=== PATIENT | female | born 1975 | race Caucasian/White ===

== ENCOUNTER 2018-08-25 00:39 | Emergency (ER) | payer SELFPAY ==
[2018-08-25 00:45] VITALS: BP 123/89; PULSE 104; RESP 18; TEMP 37.1; O2SAT 96; BMI 29.5
--- NOTE | 2018-08-25 01:10 | ED.ABDPAIN ---
HPI - Abdominal Pain General Chief Complaint: Abdominal Pain Stated Complaint: abdominal pain Time Seen by Provider: 08/25/18 00:52 Source: patient Mode of arrival: ambulatory Limitations: no limitations History of Present Illness HPI narrative: Patient is a 43-year-old female who presents with abdominal pain. She has a history of what sounds like a duodenal ulcer. She takes Prilosec twice daily. He got started on methadone help with pain she has not really been taking med at home. She says she has lost 12 lb in 5 days due to inability to eat. She has also been vomiting. She denies any black stools no hematemesis. She has not had any fever. MD complaint: abdominal pain Pain Consistency: constant Severity: moderate Quality: stabbing Radiation: RUQ Related Data Previous Rx's Medication Instructions Recorded ondansetron 4 mg PO Q6-8H PRN #10 tab 08/25/18 Allergies Allergy/AdvReac Type Severity Reaction Status Date / Time From [facility] Allergy Severe SEIZURE Uncoded 06/20/17 12:30 From TYLENOL Allergy Unknown Uncoded 06/20/17 12:30 GLUTEN AdvReac Unknown Uncoded 06/20/17 12:30 Review of Systems Review of Systems GENERAL: Denies chills, fatigue, malaise, fever, sweats, travel HEENT: Denies sinus pain, ear pain, sore throat, difficulty swallowing, neck pain RESPIRATORY: Denies dyspnea, cough, wheezing, hemoptysis, sputum. CARDIOVASCULAR: Denies chest pain, palpitations, orthopnea, edema GASTROINTESTINAL: See HPI : Denies dysuria, frequency, incontinence, hematuria, urinary retention, flank pain. MUSCULOSKELETAL: Denies weakness, joint pain, or bony pain SKIN: No rash, no erythema, no pruritus NEUROLOGIC: Denies weakness, dizziness, headache, numbness, change in speech, confusion PSYCHIATRIC: No concerning psychosocial issues. 12 point review of systems is negative except for those stated above and HPI [facility] Medical History Gastric ulcer (Acute) Surgical History (Updated 08/25/18 @ 06:02 by Chiquis Rosa DO) Status post appendectomy (Acute) Status post cholecystectomy (Acute) Status post hysterectomy (Acute) Exam Initial Vital Signs Initial Vital Signs: Vital Signs Temperature 98.7 F 08/25/18 00:45 Pulse Rate 104 H 08/25/18 00:45 Respiratory Rate 18 08/25/18 00:45 Blood Pressure 123/89 08/25/18 00:45 Pulse Oximetry 96 08/25/18 00:45 GENERAL: Tearful appears in pain and in no acute distress. HEENT: Head atraumatic,EOMI, pupils reactive, face symmetric, moist mucous membranes CARDIOVASCULAR: Regular rate and rhythm without murmurs, rubs or gallops. RESPIRATORY: Breath sounds equal bilaterally, no wheezes rales or rhonchi. ABDOMEN: Soft, tender right upper quadrant negative Braga sign lower abdomen is soft there is no distention : No CVA tenderness EXTREMITIES: Normal range of motion, no clubbing or edema. Neurovascularly intact NEUROLOGICAL: Alert and oriented x4.Normal gait and speech. Cranial nerves II through XII grossly intact. SKIN: Warm, dry, no laceration, no petechiae, no rashes or lesions. Course Orders Ordered: ED Orders 08/25/18 01:22 Complete Blood Count AUTO DIFF Stat Comprehensive Metabolic Panel Stat Lipase Stat Partial Thromboplastin Time Stat Prothrombin Time INR Stat 08/25/18 03:01 CT abdomen pelvis w con Stat Discontinued Medications Hydromorphone HCl (Dilaudid) 1 mg IV NOW ONE Stop: 08/25/18 01:17 Last Admin: 08/25/18 02:33 Dose: 1 mg Hydromorphone HCl (Dilaudid) 1 mg IV NOW ONE Stop: 08/25/18 03:02 Last Admin: 08/25/18 03:07 Dose: 1 mg Lorazepam (Ativan) 0.5 mg IV NOW ONE Stop: 08/25/18 05:02 Last Admin: 08/25/18 05:44 Dose: 0.5 mg Ondansetron HCl (Zofran) 4 mg IV NOW ONE Stop: 08/25/18 03:02 Last Admin: 08/25/18 03:08 Dose: 4 mg Ondansetron HCl (Zofran) 4 mg IV NOW ONE Stop: 08/25/18 04:24 Last Admin: 08/25/18 04:24 Dose: 4 mg Ondansetron HCl (Zofran Odt Prepack) 1 bottle MISC SEEINSTR ONE Stop: 08/25/18 05:50 Last Admin: 08/25/18 05:52 Dose: 1 bottle Pantoprazole Sodium (Protonix) 40 mg IV NOW ONE Stop: 08/25/18 00:53 Last Admin: 08/25/18 02:33 Dose: 40 mg Vital Signs - 8 hr 08/25/18 00:45 08/25/18 04:47 08/25/18 05:55 Temperature 98.7 F Pulse Rate 104 H 104 H 85 Respiratory Rate 18 16 17 Blood Pressure 123/89 Blood Pressure [Left Wrist] 125/85 113/80 Pulse Oximetry 96 98 96 MDM - Abdominal Pain Lab Data Attestation: I reviewed the patient's lab results. Result diagrams: 08/25/18 01:22 08/25/18 01:22 Lab Results 08/25/18 08/25/18 08/25/18 Range/Units 01:22 01:22 01:22 WBC 11.4 H (4.5-11.0) X10^3/uL RBC 4.67 (4.0-5.2) X10^6/uL Hgb 13.6 (12.0-16.0) g/dL Hct 39.9 (36-46) % MCV 85.4 (80-100) fL MCH 29.0 (26-34) PG MCHC 34.0 (30-36) % RDW 13.6 (11.6-14.8) % Plt Count 289 (150-400) X10^3/uL Neut % (Auto) 64.3 (50-75) % Lymph % (Auto) 28.5 (25-40) % [place] % (Auto) 4.7 (3-14) % Eos % (Auto) 1.3 L (2-4) % Baso % (Auto) 1.2 (0-2) % Neut # (Auto) 7300 H (8508-3292) /uL Lymph # (Auto) 3200 (4485-9589) /uL [place] # (Auto) 500 (0-900) /uL Eos # (Auto) 100 (0-450) /uL Baso # (Auto) 100 (0-100) /uL PT 12.3 (10.1-12.7) SECONDS INR 1.1 (0.9-1.3) APTT 41 H (26.4-36.2) SECONDS Sodium 140 (137-145) mmol/L Potassium 4.3 (3.4-5.1) mmol/L Chloride 104 (98-107) mmol/L Carbon Dioxide 29 (22-32) mmol/L BUN 12 (7-17) mg/dL Creatinine 0.70 (0.52-1.04) mg/dL Estimated GFR > 60.0 (>60) mL/min BUN/Creatinine Ratio 17.1 (6-22) Glucose 105 H (70-100) mg/dL Calcium 9.9 (8.4-10.2) mg/dL Total Bilirubin 0.4 (0.2-1.3) mg/dL AST 20 (14-36) IU/L ALT 28 (9-52) IU/L Alkaline Phosphatase 113 (38-126) U/L Total Protein 8.1 (6.3-8.2) g/dL Albumin 4.2 (3.5-5.0) g/dL Globulin 3.9 (1.7-4.1) g/dL Albumin/Globulin Ratio 1.1 (1.0-2.8) Lipase 28 (23-300) U/L Imaging Data CT scan - abdomen: 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 She was a tough IV start. I actually did get an IV in her right upper arm with ultrasound. Her abdomen is otherwise soft. CT was negative. This is likely her ulcer. I recommend she follow up with her PCP for an EGD. Discharge Plan Departure Patient Disposition: Home Clinical Impression: Gastric ulcer Qualifiers: Gastric ulcer chronicity: acute Gastric ulcer complication status: unspecified whether hemorrhage or perforation present Qualified Code(s): K25.3 - Acute gastric ulcer without hemorrhage or perforation Discharge Date/Time: 08/25/18 05:59 Interventions: ED Discharge Assessment Last Done: 08/25/18 05:56 Instructions: DI for Gastric Ulcer Activity Restrictions/Additional Instructions: *You have been diagnosed with gastric ulcer *What to do: Avoid all NSAIDs. ED you may need an EGD please discuss this with your PCP *Continue to take medications as directed Take Prilosec 40 mg twice a day Ranitidine 150 mg twice daily-this can be found [id number] Zofran 4 mg every 6-8 hours if needed for nausea or vomiting Take your methadone as previously prescribed *Follow up with your primary care provider in 2-3 days *Return to ER if you should have increasing abdominal pain, persistent vomiting or any new, worsening or concerning symptoms Prescriptions: New ondansetron 4 mg tablet,disintegrating 4 mg PO Q6-8H PRN (Reason: nausea and vomiting) Qty: 10 RF: 0 Referrals: Lionel North MD [Primary Care Provider] -
--- NOTE | 2018-08-25 01:19 | ED_ITS ---
HPI - Abdominal Pain General Chief Complaint: Abdominal Pain Stated Complaint: abdominal pain Time Seen by Provider: 08/25/18 00:52 Source: patient Mode of arrival: ambulatory Limitations: no limitations History of Present Illness HPI narrative: Patient is a 43-year-old female who presents with abdominal pain. She has a history of what sounds like a duodenal ulcer. She takes Prilosec twice daily. He got started on methadone help with pain she has not really been taking med at home. She says she has lost 12 lb in 5 days due to inability to eat. She has also been vomiting. She denies any black stools no hematemesis. She has not had any fever. MD complaint: abdominal pain Pain Consistency: constant Severity: moderate Quality: stabbing Radiation: RUQ Related Data Previous Rx's Medication Instructions Recorded ondansetron 4 mg PO Q6-8H PRN #10 tab 08/25/18 Allergies Allergy/AdvReac Type Severity Reaction Status Date / Time From [facility] Allergy Severe SEIZURE Uncoded 06/20/17 12:30 From TYLENOL Allergy Unknown Uncoded 06/20/17 12:30 GLUTEN AdvReac Unknown Uncoded 06/20/17 12:30 Review of Systems Review of Systems GENERAL: Denies chills, fatigue, malaise, fever, sweats, travel HEENT: Denies sinus pain, ear pain, sore throat, difficulty swallowing, neck pain RESPIRATORY: Denies dyspnea, cough, wheezing, hemoptysis, sputum. CARDIOVASCULAR: Denies chest pain, palpitations, orthopnea, edema GASTROINTESTINAL: See HPI : Denies dysuria, frequency, incontinence, hematuria, urinary retention, flank pain. MUSCULOSKELETAL: Denies weakness, joint pain, or bony pain SKIN: No rash, no erythema, no pruritus NEUROLOGIC: Denies weakness, dizziness, headache, numbness, change in speech, confusion PSYCHIATRIC: No concerning psychosocial issues. 12 point review of systems is negative except for those stated above and HPI [facility] Medical History Gastric ulcer (Acute) Surgical History (Updated 08/25/18 @ 06:02 by Chiquis Rosa DO) Status post appendectomy (Acute) Status post cholecystectomy (Acute) Status post hysterectomy (Acute) Exam Initial Vital Signs Initial Vital Signs: Vital Signs Temperature 98.7 F 08/25/18 00:45 Pulse Rate 104 H 08/25/18 00:45 Respiratory Rate 18 08/25/18 00:45 Blood Pressure 123/89 08/25/18 00:45 Pulse Oximetry 96 08/25/18 00:45 GENERAL: Tearful appears in pain and in no acute distress. HEENT: Head atraumatic,EOMI, pupils reactive, face symmetric, moist mucous membranes CARDIOVASCULAR: Regular rate and rhythm without murmurs, rubs or gallops. RESPIRATORY: Breath sounds equal bilaterally, no wheezes rales or rhonchi. ABDOMEN: Soft, tender right upper quadrant negative Braga sign lower abdomen is soft there is no distention : No CVA tenderness EXTREMITIES: Normal range of motion, no clubbing or edema. Neurovascularly intact NEUROLOGICAL: Alert and oriented x4.Normal gait and speech. Cranial nerves II through XII grossly intact. SKIN: Warm, dry, no laceration, no petechiae, no rashes or lesions. Course Orders Ordered: ED Orders 08/25/18 01:22 Complete Blood Count AUTO DIFF Stat Comprehensive Metabolic Panel Stat Lipase Stat Partial Thromboplastin Time Stat Prothrombin Time INR Stat 08/25/18 03:01 CT abdomen pelvis w con Stat Discontinued Medications Hydromorphone HCl (Dilaudid) 1 mg IV NOW ONE Stop: 08/25/18 01:17 Last Admin: 08/25/18 02:33 Dose: 1 mg Hydromorphone HCl (Dilaudid) 1 mg IV NOW ONE Stop: 08/25/18 03:02 Last Admin: 08/25/18 03:07 Dose: 1 mg Lorazepam (Ativan) 0.5 mg IV NOW ONE Stop: 08/25/18 05:02 Last Admin: 08/25/18 05:44 Dose: 0.5 mg Ondansetron HCl (Zofran) 4 mg IV NOW ONE Stop: 08/25/18 03:02 Last Admin: 08/25/18 03:08 Dose: 4 mg Ondansetron HCl (Zofran) 4 mg IV NOW ONE Stop: 08/25/18 04:24 Last Admin: 08/25/18 04:24 Dose: 4 mg Ondansetron HCl (Zofran Odt Prepack) 1 bottle MISC SEEINSTR ONE Stop: 08/25/18 05:50 Last Admin: 08/25/18 05:52 Dose: 1 bottle Pantoprazole Sodium (Protonix) 40 mg IV NOW ONE Stop: 08/25/18 00:53 Last Admin: 08/25/18 02:33 Dose: 40 mg Vital Signs - 8 hr 08/25/18 00:45 08/25/18 04:47 08/25/18 05:55 Temperature 98.7 F Pulse Rate 104 H 104 H 85 Respiratory Rate 18 16 17 Blood Pressure 123/89 Blood Pressure [Left Wrist] 125/85 113/80 Pulse Oximetry 96 98 96 MDM - Abdominal Pain Lab Data Attestation: I reviewed the patient's lab results. Result diagrams: 08/25/18 01:22 08/25/18 01:22 Lab Results 08/25/18 08/25/18 08/25/18 Range/Units 01:22 01:22 01:22 WBC 11.4 H (4.5-11.0) X10^3/uL RBC 4.67 (4.0-5.2) X10^6/uL Hgb 13.6 (12.0-16.0) g/dL Hct 39.9 (36-46) % MCV 85.4 (80-100) fL MCH 29.0 (26-34) PG MCHC 34.0 (30-36) % RDW 13.6 (11.6-14.8) % Plt Count 289 (150-400) X10^3/uL Neut % (Auto) 64.3 (50-75) % Lymph % (Auto) 28.5 (25-40) % [place] % (Auto) 4.7 (3-14) % Eos % (Auto) 1.3 L (2-4) % Baso % (Auto) 1.2 (0-2) % Neut # (Auto) 7300 H (5653-3399) /uL Lymph # (Auto) 3200 (5055-8779) /uL [place] # (Auto) 500 (0-900) /uL Eos # (Auto) 100 (0-450) /uL Baso # (Auto) 100 (0-100) /uL PT 12.3 (10.1-12.7) SECONDS INR 1.1 (0.9-1.3) APTT 41 H (26.4-36.2) SECONDS Sodium 140 (137-145) mmol/L Potassium 4.3 (3.4-5.1) mmol/L Chloride 104 (98-107) mmol/L Carbon Dioxide 29 (22-32) mmol/L BUN 12 (7-17) mg/dL Creatinine 0.70 (0.52-1.04) mg/dL Estimated GFR > 60.0 (>60) mL/min BUN/Creatinine Ratio 17.1 (6-22) Glucose 105 H (70-100) mg/dL Calcium 9.9 (8.4-10.2) mg/dL Total Bilirubin 0.4 (0.2-1.3) mg/dL AST 20 (14-36) IU/L ALT 28 (9-52) IU/L Alkaline Phosphatase 113 (38-126) U/L Total Protein 8.1 (6.3-8.2) g/dL Albumin 4.2 (3.5-5.0) g/dL Globulin 3.9 (1.7-4.1) g/dL Albumin/Globulin Ratio 1.1 (1.0-2.8) Lipase 28 (23-300) U/L Imaging Data CT scan - abdomen: 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 She was a tough IV start. I actually did get an IV in her right upper arm with ultrasound. Her abdomen is otherwise soft. CT was negative. This is likely her ulcer. I recommend she follow up with her PCP for an EGD. Discharge Plan Departure Patient Disposition: Home Clinical Impression: Gastric ulcer Qualifiers: Gastric ulcer chronicity: acute Gastric ulcer complication status: unspecified whether hemorrhage or perforation present Qualified Code(s): K25.3 - Acute gastric ulcer without hemorrhage or perforation Discharge Date/Time: 08/25/18 05:59 Interventions: ED Discharge Assessment Last Done: 08/25/18 05:56 Instructions: DI for Gastric Ulcer Activity Restrictions/Additional Instructions: *You have been diagnosed with gastric ulcer *What to do: Avoid all NSAIDs. ED you may need an EGD please discuss this with your PCP *Continue to take medications as directed Take Prilosec 40 mg twice a day Ranitidine 150 mg twice daily-this can be found [id number] Zofran 4 mg every 6-8 hours if needed for nausea or vomiting Take your methadone as previously prescribed *Follow up with your primary care provider in 2-3 days *Return to ER if you should have increasing abdominal pain, persistent vomiting or any new, worsening or concerning symptoms Prescriptions: New ondansetron 4 mg tablet,disintegrating 4 mg PO Q6-8H PRN (Reason: nausea and vomiting) Qty: 10 RF: 0 Referrals: Lionel North MD [Primary Care Provider] -
[2018-08-25 01:34] LABS: Add Manual Diff / Slide Review NO; Basophils Absolute Auto 100 /uL (0-100); Basophils Percent Auto 1.2 % (0-2); Eosinophils Absolute Auto 100 /uL (0-450); Eosinophils Percent Auto 1.3 % (2-4); Hematocrit 39.9 % (36-46); Hemoglobin 13.6 g/dL (12.0-16.0); Lymphocytes Absolute Auto 3200 /uL (1100-4500); Lymphocytes Percent Auto 28.5 % (25-40); Mean Corpuscular Volume 85.4 fL (80-100); Monocytes Absolute Auto 500 /uL (0-900); Monocytes Percent Auto 4.7 % (3-14); Neutrophils Absolute Auto 7300 /uL (1500-7000); Neutrophils Percent Auto 64.3 % (50-75); Platelet Count 289 X10^3/uL (150-400); Red Blood Cell Count 4.67 X10^6/uL (4.0-5.2); Red Cell Distribution Width 13.6 % (11.6-14.8); White Blood Cell Count 11.4 X10^3/uL (4.5-11.0)
[2018-08-25 01:39] LABS: INR 1.1 (0.9-1.3); Prothrombin Time 12.3 SECONDS (10.1-12.7)
[2018-08-25 01:42] LABS: PTT Partial Thromboplastin Tim 41 SECONDS (26.4-36.2)
[2018-08-25 01:43] LABS: Alanine Aminotransferase 28 IU/L (9-52); Albumin 4.2 g/dL (3.5-5.0); Albumin Globulin Ratio 1.1 (1.0-2.8); Alkaline Phosphatase 113 U/L (38-126); Aspartate Aminotransferase 20 IU/L (14-36); BUN Creatinine Ratio 17.1 (6-22); Bilirubin Total 0.4 mg/dL (0.2-1.3); Blood Urea Nitrogen 12 mg/dL (7-17); Calcium 9.9 mg/dL (8.4-10.2); Carbon Dioxide 29 mmol/L (22-32); Chloride 104 mmol/L (98-107); Estimated Glomerular Filt Rate > 60.0 mL/min (>60); Globulin 3.9 g/dL (1.7-4.1); Glucose 105 mg/dL (70-100); HEMOLYSIS < 15 (0-50); Lipase 28 U/L (23-300); Potassium 4.3 mmol/L (3.4-5.1); Sodium 140 mmol/L (137-145); Total Protein 8.1 g/dL (6.3-8.2)
[2018-08-25] MEDS: PANTOPRAZOLE 40 MG VIAL IV (02:33)
[2018-08-25] MEDS: HYDROMORPHONE 1 MG INJ IV ×2 (02:33→03:07)
--- NOTE | 2018-08-25 03:01 | DI.CT.S_ITS ---
PROCEDURE: CT ABDOMEN PELVIS W CON INDICATIONS: persistant pain hx of ulcer TECHNIQUE: After the administration of intravenous contrast, 5 mm thick sections acquired from the diaphragm to the symphysis. 5 mm coronal and sagittal reformats were acquired. For radiation dose reduction, the following was used: automated exposure control, adjustment of mA and/or kV according to patient size. COMPARISON: [facility], CT, ABDOMEN/PELVIS WITH CONTRAST, 03/21/2014, 16:55. FINDINGS: Image quality: Excellent. ABDOMEN: Lung bases: Lung bases are clear. Heart size is normal. Solid organs: Liver is normal in size and enhancement. Gallbladder is surgically absent. Biliary system is non dilated. Pancreas enhances normally. Spleen is normal in size and enhancement. No adrenal nodules. Kidneys demonstrate normal size and enhancement, without hydronephrosis. Peritoneum and bowel: Bowel loops demonstrate normal wall thickness and caliber. No free fluid or air. Appendix not seen. No evidence of appendicitis. Nodes and vessels: No retroperitoneal or mesenteric adenopathy by size criteria. Aorta and inferior vena cava are normal in size. Miscellaneous: No ventral hernias. PELVIS: Genitourinary: Bladder wall thickness is normal. Miscellaneous: No inguinal hernias or adenopathy. Bones: No suspicious bony lesions. No vertebral body compression fractures. IMPRESSION: No acute process. Concordant with preliminary interpretation. Dictated by: Lai Harrington M.D. on 08/25/2018 at 7:49 Approved by: Lai Harrington M.D. on 08/25/2018 at 7:51
[2018-08-25] MEDS: ONDANSETRON 4 MG/2 ML INJ IV ×2 (03:08→04:24)
--- NOTE | 2018-08-25 04:25 | PC.NURSE ---
Pt used call mad[facility] to report increasing pain and nausea. provider notified, zofran order recieved.
[2018-08-25 04:47] VITALS: BP 125/85; PULSE 104; RESP 16; O2SAT 98
[2018-08-25] MEDS: LORazepam 2 MG/ML INJ 0.5 MG IV (05:44)
[2018-08-25] MEDS: ONDANSETRON 4 MG ODT PREPACK 1 BOTTLE MISC (05:52)
[2018-08-25 05:55] VITALS: BP 113/80; PULSE 85; RESP 17; O2SAT 96
== END 2018-08-25 05:59 | disposition home or self-care (01) ==
PROVIDERS: Emergency Provider Emergency Medicine; Family Provider Family Medicine; PCP Family Medicine
DX: K25.3 Acute gastric ulcer without hemorrhage or perforation (principal)
CPT/HCPCS: 36415; 74177; 80053; 83690; 85025; 85610; 85730; 96374; 96375; 96376; 99282; 99284; C9113; J1170; J2060; J2405; Q9967

== ENCOUNTER → 2021-08-24 09:37 | Outpatient (CLI) | payer OTHER, SELFPAY ==
[2021-08-24 20:16] LABS: C-Reactive Protein Quant 2.7 mg/dL (<1.0)
[2021-08-24 20:38] LABS: TSH w/ Reflex to FT4 1.46 uIU/mL (0.47-4.68)
[2021-08-24 20:45] LABS: Erythrocyte Sedimentation Rate 45 MM/HR (0-20)
[2021-08-24 20:52] LABS: Hemoglobin A1C% w Est Avg Glu 5.8 % (4.0-6.0)
[2021-08-24 21:00] LABS: Vitamin B12 529 pg/mL (239-931)
[2021-08-25 00:13] LABS: Vitamin D 25 Hydroxy (D3) 21.4 ng/mL (30.0-100.0)
[2021-08-26 14:08] LABS: ANA Screen, IFA Negative (.)
== END ==
PROVIDERS: Family Provider Family Medicine; PCP Family Medicine; Visit Provider Family Medicine
DX: E66.9 Obesity, unspecified (principal); F32.89 Other specified depressive episodes; M13.0 Polyarthritis, unspecified; M25.50 Pain in unspecified joint; M79.7 Fibromyalgia; R73.9 Hyperglycemia, unspecified; F41.1 Generalized anxiety disorder
CPT/HCPCS: 82306; 82607; 83036; 84443; 85651; 86038; 86140

== ENCOUNTER → 2021-10-06 09:02 | Outpatient (CLI) | payer OTHER, SELFPAY ==
[2021-10-06 20:47] LABS: C-Reactive Protein Quant 2.1 mg/dL (<1.0); Creatine Kinase 53 U/L (30-135)
[2021-10-06 20:57] LABS: Erythrocyte Sedimentation Rate 57 MM/HR (0-20)
[2021-10-06 21:06] LABS: Rheumatoid Factor < 8.6 IU/mL (<12.0)
== END ==
PROVIDERS: Family Provider Family Medicine; PCP Family Medicine; Visit Provider Family Medicine
DX: M13.0 Polyarthritis, unspecified (principal); M79.10 Myalgia, unspecified site; R70.0 Elevated erythrocyte sedimentation rate
CPT/HCPCS: 82550; 85651; 86140; 86430

== ENCOUNTER → 2022-03-31 12:51 | Outpatient (CLI) | payer OTHER, SELFPAY ==
[2022-03-31 14:26] LABS: Cortisol Random 4.62 ug/dL
[2022-04-04 07:37] LABS: Adrenocorticotropic Hormone 11.5 pg/mL (7.2-63.3)
== END ==
PROVIDERS: Family Provider Family Medicine; PCP Family Medicine; Referring Provider Internal Medicine Cardiovascular Disease; Visit Provider Internal Medicine Cardiovascular Disease
DX: R00.0 Tachycardia, unspecified (principal); G90.1 Familial dysautonomia [Riley-Day]
CPT/HCPCS: 36415; 82024; 82384; 82533

== ENCOUNTER 2022-08-30 20:24 | Emergency (ER) | payer OTHER, SELFPAY ==
[2022-08-30] VITALS (12 sets, daily range): BP systolic 109–133; BP diastolic 73–88; PULSE 111–120; RESP 16–31; TEMP 37.3; O2SAT 88–100; BMI 29.6
--- NOTE | 2022-08-30 20:34 | DI.CT.S_ITS ---
PROCEDURE: CT HEAD/BRAIN WO CON INDICATIONS: Hearing loss TECHNIQUE: Noncontrast 4.5 mm thick angled axial sections acquired from the foramen magnum to the vertex, with coronal and sagittal reformats. For radiation dose reduction, the following was used: automated exposure control, adjustment of mA and/or kV according to patient size. COMPARISON: None. FINDINGS: Image quality: Excellent. CSF spaces: Basal cisterns are patent. No extra-axial fluid collections. Ventricles are normal in size and shape. Brain: No intracranial hemorrhage, mass, or mass effect. Ferraro-white matter interface appears preserved. Skull and face: Calvarium and visualized facial bones are intact, without suspicious lesions. Sinuses: Visualized sinuses and mastoids are clear. IMPRESSION: 1. No acute intracranial abnormality. Dictated by: Xander Faria M.D. on 08/30/2022 at 22:11 Approved by: Xander Faria M.D. on 08/30/2022 at 22:12
--- NOTE | 2022-08-30 20:35 | DI.RAD.S_ITS ---
PROCEDURE: XR CHEST 1V INDICATIONS: Hypoxia TECHNIQUE: One view of the chest was acquired. COMPARISON: None. FINDINGS: Surgical changes and devices: Surgical clips project over the superior right hemithorax. Lungs and pleura: There is pulmonary vascular prominence suggestive of pulmonary edema. No pleural effusions or pneumothorax. Mediastinum: Mediastinal contours appear normal. Heart size is normal. Bones and chest wall: No suspicious bony lesions. Overlying soft tissues appear unremarkable. IMPRESSION: 1. Pulmonary vascular prominence suggestive of pulmonary edema. Dictated by: Xander Faria M.D. on 08/30/2022 at 21:43 Approved by: Xander Faria M.D. on 08/30/2022 at 21:55
[2022-08-30 21:29] LABS: Appearance Urine UA CLEAR; Bilirubin Urine UA NEGATIVE (NEGATIVE); Color Urine UA YELLOW; Glucose Urine UA TRACE g/dL (Negative); Ketones Urine UA NEGATIVE (NEGATIVE); Leukocyte Esterase Urine UA NEGATIVE (NEGATIVE); Nitrite Urine UA NEGATIVE (Negative); Occult Blood Urine UA 3+ (Negative); Protein Urine UA 1+ (Negative); Specific Gravity Urine UA 1.025 (1.000-1.035); Urobilinogen Urine UA 0.2 E.U./dL (0.2)
[2022-08-30 21:30] LABS: pH Urine UA 5.5 (4.5-8.0)
[2022-08-30 21:36] LABS: Ur Creatinine Normal (Normal); Ur Specific Gravity Normal (Normal); Urine pH Normal (Normal)
[2022-08-30 21:37] LABS: Bacteria Urine Few (2-10); Culture Indicated Urine Cult Not Indicated; RBC Urine 1-5/HPF (0-5/HPF); Renal Epithelial Cells Urine 1-5/HPF (0-1/HPF); Squamous Epithelial Cell Urine 1-5 /HPF (0-5/HPF); UR Morphine/Opiate cutoff 300 Negative (Negative); Urine Amphetamines Negative (Negative); Urine Cocaine Negative (Negative); Urine Methamphetamines Negative (Negative); Urine Phencyclidine Negative (Negative); Urine Tetrahydrocannabinol Negative (Negative); WBC Urine None Seen (0-5/HPF)
[2022-08-30 21:38] LABS: Urine Barbiturates Negative (Negative); Urine Benzodiazepines Negative (Negative); Urine MDMA Negative (Negative); Urine Methadone Positive (Negative); Urine Oxycodone Negative (Negative); Urine Tricyclic Antidepressant Positive (Negative)
[2022-08-30 21:55] LABS: Adenovirus Not Detected (Not Detect); B. parapertussis Not Detected (Not Detecte); Bordetella pertussis Not Detected (Not Detecte); Chlamydophila pneumoniae Not Detected (Not Detect); Coronavirus 229E Not Detected (Not Detect); Coronavirus HKU1 Not Detected (Not Detect); Coronavirus NL 63 Not Detected (Not Detect); Coronavirus OC43 Not Detected (Not Detect); Human Metapneumovirus Not Detected (Not Detect); Human Rhinovirus/Enterovirus Not Detected (Not Detect); Influenza A Not Detected (Not Detect); Influenza B Not Detected (Not Detect); Mycoplasma pneumoniae Not Detected (Not Detect); Parainfluenza Virus 1 Not Detected (Not Detect); Parainfluenza Virus 2 Not Detected (Not Detect); Parainfluenza Virus 3 Not Detected (Not Detect); Parainfluenza Virus 4 Not Detected (Not Detect); Respiratory Syncytial Virus Not Detected (Not Detect); SARS- CoV-2 Not Detected (Not Detecte)
[2022-08-30] MEDS: LORazepam 2 MG/ML INJ 1 MG IV (22:16)
--- NOTE | 2022-08-30 22:17 | ED_ITS ---
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 Influenza Type B (PCR) (Not Detect) M. pneumoniae (PCR) (Not Detect) Parainfluenza 1 (PCR) (Not Detect) Parainfluenza 2 (PCR) (Not Detect) Parainfluenza 3 (PCR) (Not Detect) Parainfluenza 4 (PCR) (Not Detect) RSV (PCR) (Not Detect) Entero/Rhino (PCR) (Not Detect) 08/30/22 08/30/22 08/30/22 Range/Units 21:55 21:55 21:55 WBC (4.5-11.0) X10^3/uL RBC (4.0-5.2) X10^6/uL Hgb (12.0-16.0) g/dL Hct (36-46) % MCV (80-100) fL MCH (26-34) PG MCHC (30-36) % RDW (11.6-14.8) % Plt Count (150-400) X10^3/uL Neut % (Auto) Lymph % (Auto) [place] % (Auto) Eos % (Auto) Baso % (Auto) Lymph # (Auto) [place] # (Auto) Baso # (Auto) Total Counted Seg Neutrophils % (38-70) % Band Neutrophils % (3-7) % Lymphocytes % (Manual) (25-45) % Monocytes % (Manual) (2-11) % Neutrophils # (Manual) (2344-6696) /uL Toxic Granulation Platelet Estimate RBC Morphology PT (10.1-12.7) SECONDS INR (0.9-1.3) APTT (26-36) SECONDS ABG pH (7.35-7.45) ABG pCO2 (35-45) mmHg ABG pO2 (80-100) mmHg ABG HCO3 (23-27) mmol/L ABG Total CO2 (23-27) mmol/L ABG O2 Saturation (95-100) % ABG Base Excess (-2-3) mmol/L FiO2 Sodium (137-145) mmol/L Potassium (3.4-5.1) mmol/L Chloride (98-107) mmol/L Carbon Dioxide (22-32) mmol/L BUN (7-17) mg/dL Creatinine (0.52-1.04) mg/dL Estimated GFR (>60) mL/min BUN/Creatinine Ratio (6-22) Glucose (70-100) mg/dL Lactate (0.7-2.1) mmol/L Calcium (8.4-10.2) mg/dL Magnesium (1.6-2.3) mg/dL Total Bilirubin (0.2-1.3) mg/dL AST (14-36) IU/L ALT (<35) IU/L Alkaline Phosphatase (38-126) U/L Ammonia Cancelled Total Creatine Kinase CK-MB (CK-2) CK-MB (CK-2) Rel Index Troponin I NT-Pro-B Natriuret Pep (<125) pg/mL Total Protein (6.3-8.2) g/dL Albumin (3.5-5.0) g/dL Globulin (1.7-4.1) g/dL Albumin/Globulin Ratio (1.0-2.8) Lipase (23-300) U/L Procalcitonin 2.76 H (<0.5) ng/mL TSH Cancelled Urine Color Urine Appearance Urine pH (4.5-8.0) Ur Specific [place] (1.000-1.035) Urine Protein (Negative) Urine Glucose (UA) (Negative) g/dL Urine Ketones (NEGATIVE) Urine Occult Blood (Negative) Urine Nitrate (Negative) Urine Bilirubin (NEGATIVE) Urine Urobilinogen (0.2) E.U./dL Ur Leukocyte Esterase (NEGATIVE) Urine RBC (0-5/HPF) Urine WBC (0-5/HPF) Ur Squamous Epith Cells (0-5/HPF) Ur Renal Epithelial Cell (0-1/HPF) Urine Bacteria (None) Ur Culture Indicated? CSF Tube Number CSF Volume CSF Appearance (Clear) CSF Color (Colorless) CSF WBC (0-5) MONO/uL CSF RBC RBC /uL CSF Mononuclear WBCs CSF Polynuclear WBCs CSF Glucose (40-70) mg/dL CSF Total Protein (12-60) mg/dL CSF C.neoform/gat PCR (Not Detect) CSF CMV DNA (PCR) (Not Detect) CSF Enterovirus (PCR) (Not Detect) CSF E. coli (PCR) (Not Detect) CSF H. influenzae (PCR) (Not Detect) CSF HSV I (PCR) (Not Detect) CSF HSV II (PCR) (Not Detect) CSF HHV 6 (PCR) (Not Detect) CSF L.monocytogenes PCR (Not Detect) CSF N. meningitidis PCR (Not Detect) CSF Parechovirus (PCR) (Not Detect) CSF S. agalactiae (PCR) (Not Detect) CSF S. pneumoniae (PCR) (Not Detect) CSF VZV (PCR) (Not Detecte) U Opiates 300ng/mL cut (Negative) Ur Oxycodone Screen (Negative) Urine Methadone Screen (Negative) Ur Barbiturates Screen (Negative) U Tricyclic Antidepress (Negative) Ur Phencyclidine Scrn (Negative) Ur Amphetamines Screen (Negative) U Methamphetamines Scrn (Negative) Ur MDMA Scrn (Ecstasy) (Negative) U Benzodiazepines Scrn (Negative) Urine Cocaine Screen (Negative) U Marijuana (THC) Screen (Negative) Ethyl Alcohol ( - 10) mg/dL Chlamy pneumoniae PCR (Not Detect) Adenovirus (PCR) (Not Detect) B. pertussis DNA (PCR) (Not Detecte) B.parapertussis DNA PCR (Not Detecte) Coronavirus OC43 (PCR) (Not Detect) Coronavirus HKU1 (PCR) (Not Detect) Coronavirus 229E (PCR) (Not Detect) SARS-CoV-2 (PCR) (Not Detecte) Coronavirus NL63 (PCR) (Not Detect) Human Metapneumovir PCR (Not Detect) Influenza Type A (PCR) (Not Detect) Influenza Type B (PCR) (Not Detect) M. pneumoniae (PCR) (Not Detect) Parainfluenza 1 (PCR) (Not Detect) Parainfluenza 2 (PCR) (Not Detect) Parainfluenza 3 (PCR) (Not Detect) Parainfluenza 4 (PCR) (Not Detect) RSV (PCR) (Not Detect) Entero/Rhino (PCR) (Not Detect) 08/30/22 08/30/22 08/30/22 Range/Units 21:55 22:20 22:49 WBC (4.5-11.0) X10^3/uL RBC (4.0-5.2) X10^6/uL Hgb (12.0-16.0) g/dL Hct (36-46) % MCV (80-100) fL MCH (26-34) PG MCHC (30-36) % RDW (11.6-14.8) % Plt Count (150-400) X10^3/uL Neut % (Auto) Lymph % (Auto) [place] % (Auto) Eos % (Auto) Baso % (Auto) Lymph # (Auto) [place] # (Auto) Baso # (Auto) Total Counted Seg Neutrophils % (38-70) % Band Neutrophils % (3-7) % Lymphocytes % (Manual) (25-45) % Monocytes % (Manual) (2-11) % Neutrophils # (Manual) ([id number]) /uL Toxic Granulation Platelet Estimate RBC Morphology PT 13.1 H (10.1-12.7) SECONDS INR 1.1 (0.9-1.3) APTT 34 (26-36) SECONDS ABG pH (7.35-7.45) ABG pCO2 (35-45) mmHg ABG pO2 (80-100) mmHg ABG HCO3 (23-27) mmol/L ABG Total CO2 (23-27) mmol/L ABG O2 Saturation (95-100) % ABG Base Excess (-2-3) mmol/L FiO2 Sodium (137-145) mmol/L Potassium (3.4-5.1) mmol/L Chloride (98-107) mmol/L Carbon Dioxide (22-32) mmol/L BUN (7-17) mg/dL Creatinine (0.52-1.04) mg/dL Estimated GFR (>60) mL/min BUN/Creatinine Ratio (6-22) Glucose (70-100) mg/dL Lactate (0.7-2.1) mmol/L Calcium (8.4-10.2) mg/dL Magnesium (1.6-2.3) mg/dL Total Bilirubin (0.2-1.3) mg/dL AST (14-36) IU/L ALT (<35) IU/L Alkaline Phosphatase (38-126) U/L Ammonia Total Creatine Kinase Cancelled CK-MB (CK-2) Cancelled CK-MB (CK-2) Rel Index Cancelled Troponin I Cancelled NT-Pro-B Natriuret Pep 9260 H (<125) pg/mL Total Protein (6.3-8.2) g/dL Albumin (3.5-5.0) g/dL Globulin (1.7-4.1) g/dL Albumin/Globulin Ratio (1.0-2.8) Lipase (23-300) U/L Procalcitonin (<0.5) ng/mL TSH Urine Color Urine Appearance Urine pH (4.5-8.0) Ur Specific [place] (1.000-1.035) Urine Protein (Negative) Urine Glucose (UA) (Negative) g/dL Urine Ketones (NEGATIVE) Urine Occult Blood (Negative) Urine Nitrate (Negative) Urine Bilirubin (NEGATIVE) Urine Urobilinogen (0.2) E.U./dL Ur Leukocyte Esterase (NEGATIVE) Urine RBC (0-5/HPF) Urine WBC (0-5/HPF) Ur Squamous Epith Cells (0-5/HPF) Ur Renal Epithelial Cell (0-1/HPF) Urine Bacteria (None) Ur Culture Indicated? CSF Tube Number CSF Volume CSF Appearance (Clear) CSF Color (Colorless) CSF WBC (0-5) MONO/uL CSF RBC RBC /uL CSF Mononuclear WBCs CSF Polynuclear WBCs CSF Glucose (40-70) mg/dL CSF Total Protein (12-60) mg/dL CSF C.neoform/gat PCR (Not Detect) CSF CMV DNA (PCR) (Not Detect) CSF Enterovirus (PCR) (Not Detect) CSF E. coli (PCR) (Not Detect) CSF H. influenzae (PCR) (Not Detect) CSF HSV I (PCR) (Not Detect) CSF HSV II (PCR) (Not Detect) CSF HHV 6 (PCR) (Not Detect) CSF L.monocytogenes PCR (Not Detect) CSF N. meningitidis PCR (Not Detect) CSF Parechovirus (PCR) (Not Detect) CSF S. agalactiae (PCR) (Not Detect) CSF S. pneumoniae (PCR) (Not Detect) CSF VZV (PCR) (Not Detecte) U Opiates 300ng/mL cut (Negative) Ur Oxycodone Screen (Negative) Urine Methadone Screen (Negative) Ur Barbiturates Screen (Negative) U Tricyclic Antidepress (Negative) Ur Phencyclidine Scrn (Negative) Ur Amphetamines Screen (Negative) U Methamphetamines Scrn (Negative) Ur MDMA Scrn (Ecstasy) (Negative) U Benzodiazepines Scrn (Negative) Urine Cocaine Screen (Negative) U Marijuana (THC) Screen (Negative) Ethyl Alcohol ( - 10) mg/dL Chlamy pneumoniae PCR (Not Detect) Adenovirus (PCR) (Not Detect) B. pertussis DNA (PCR) (Not Detecte) B.parapertussis DNA PCR (Not Detecte) Coronavirus OC43 (PCR) (Not Detect) Coronavirus HKU1 (PCR) (Not Detect) Coronavirus 229E (PCR) (Not Detect) SARS-CoV-2 (PCR) (Not Detecte) Coronavirus NL63 (PCR) (Not Detect) Human Metapneumovir PCR (Not Detect) Influenza Type A (PCR) (Not Detect) Influenza Type B (PCR) (Not Detect) M. pneumoniae (PCR) (Not Detect) Parainfluenza 1 (PCR) (Not Detect) Parainfluenza 2 (PCR) (Not Detect) Parainfluenza 3 (PCR) (Not Detect) Parainfluenza 4 (PCR) (Not Detect) RSV (PCR) (Not Detect) Entero/Rhino (PCR) (Not Detect) 08/30/22 08/30/22 08/31/22 Range/Units 23:10 23:10 00:03 WBC (4.5-11.0) X10^3/uL RBC (4.0-5.2) X10^6/uL Hgb (12.0-16.0) g/dL Hct (36-46) % MCV (80-100) fL MCH (26-34) PG MCHC (30-36) % RDW (11.6-14.8) % Plt Count (150-400) X10^3/uL Neut % (Auto) Lymph % (Auto) [place] % (Auto) Eos % (Auto) Baso % (Auto) Lymph # (Auto) [place] # (Auto) Baso # (Auto) Total Counted Seg Neutrophils % (38-70) % Band Neutrophils % (3-7) % Lymphocytes % (Manual) (25-45) % Monocytes % (Manual) (2-11) % Neutrophils # (Manual) (9404-0759) /uL Toxic Granulation Platelet Estimate RBC Morphology PT (10.1-12.7) SECONDS INR (0.9-1.3) APTT (26-36) SECONDS ABG pH (7.35-7.45) ABG pCO2 (35-45) mmHg ABG pO2 (80-100) mmHg ABG HCO3 (23-27) mmol/L ABG Total CO2 (23-27) mmol/L ABG O2 Saturation (95-100) % ABG Base Excess (-2-3) mmol/L FiO2 Sodium (137-145) mmol/L Potassium (3.4-5.1) mmol/L Chloride (98-107) mmol/L Carbon Dioxide (22-32) mmol/L BUN (7-17) mg/dL Creatinine (0.52-1.04) mg/dL Estimated GFR (>60) mL/min BUN/Creatinine Ratio (6-22) Glucose (70-100) mg/dL Lactate (0.7-2.1) mmol/L Calcium (8.4-10.2) mg/dL Magnesium (1.6-2.3) mg/dL Total Bilirubin (0.2-1.3) mg/dL AST (14-36) IU/L ALT (<35) IU/L Alkaline Phosphatase (38-126) U/L Ammonia Total Creatine Kinase 7568 H CK-MB (CK-2) TNP CK-MB (CK-2) Rel Index TNP Troponin I 0.325 H* NT-Pro-B Natriuret Pep (<125) pg/mL Total Protein (6.3-8.2) g/dL Albumin (3.5-5.0) g/dL Globulin (1.7-4.1) g/dL Albumin/Globulin Ratio (1.0-2.8) Lipase (23-300) U/L Procalcitonin (<0.5) ng/mL TSH Urine Color Urine Appearance Urine pH (4.5-8.0) Ur Specific [place] (1.000-1.035) Urine Protein (Negative) Urine Glucose (UA) (Negative) g/dL Urine Ketones (NEGATIVE) Urine Occult Blood (Negative) Urine Nitrate (Negative) Urine Bilirubin (NEGATIVE) Urine Urobilinogen (0.2) E.U./dL Ur Leukocyte Esterase (NEGATIVE) Urine RBC (0-5/HPF) Urine WBC (0-5/HPF) Ur Squamous Epith Cells (0-5/HPF) Ur Renal Epithelial Cell (0-1/HPF) Urine Bacteria (None) Ur Culture Indicated? CSF Tube Number 2 CSF Volume 1.5 ml CSF Appearance Clear (Clear) CSF Color Colorless (Colorless) CSF WBC 3 (0-5) MONO/uL CSF RBC 344 RBC /uL CSF Mononuclear WBCs Not Reportable CSF Polynuclear WBCs Not Reportable CSF Glucose 87 H (40-70) mg/dL CSF Total Protein 49 (12-60) mg/dL CSF C.neoform/gat PCR Not detected (Not Detect) CSF CMV DNA (PCR) Not detected (Not Detect) CSF Enterovirus (PCR) Not detected (Not Detect) CSF E. coli (PCR) Not detected (Not Detect) CSF H. influenzae (PCR) Not detected (Not Detect) CSF HSV I (PCR) Not detected (Not Detect) CSF HSV II (PCR) Not detected (Not Detect) CSF HHV 6 (PCR) Not detected (Not Detect) CSF L.monocytogenes PCR Not detected (Not Detect) CSF N. meningitidis PCR Not detected (Not Detect) CSF Parechovirus (PCR) Not detected (Not Detect) CSF S. agalactiae (PCR) Not detected (Not Detect) CSF S. pneumoniae (PCR) Not detected (Not Detect) CSF VZV (PCR) Not detected (Not Detecte) U Opiates 300ng/mL cut (Negative) Ur Oxycodone Screen (Negative) Urine Methadone Screen (Negative) Ur Barbiturates Screen (Negative) U Tricyclic Antidepress (Negative) Ur Phencyclidine Scrn (Negative) Ur Amphetamines Screen (Negative) U Methamphetamines Scrn (Negative) Ur MDMA Scrn (Ecstasy) (Negative) U Benzodiazepines Scrn (Negative) Urine Cocaine Screen (Negative) U Marijuana (THC) Screen (Negative) Ethyl Alcohol ( - 10) mg/dL Chlamy pneumoniae PCR (Not Detect) Adenovirus (PCR) (Not Detect) B. pertussis DNA (PCR) (Not Detecte) B.parapertussis DNA PCR (Not Detecte) Coronavirus OC43 (PCR) (Not Detect) Coronavirus HKU1 (PCR) (Not Detect) Coronavirus 229E (PCR) (Not Detect) SARS-CoV-2 (PCR) (Not Detecte) Coronavirus NL63 (PCR) (Not Detect) Human Metapneumovir PCR (Not Detect) Influenza Type A (PCR) (Not Detect) Influenza Type B (PCR) (Not Detect) M. pneumoniae (PCR) (Not Detect) Parainfluenza 1 (PCR) (Not Detect) Parainfluenza 2 (PCR) (Not Detect) Parainfluenza 3 (PCR) (Not Detect) Parainfluenza 4 (PCR) (Not Detect) RSV (PCR) (Not Detect) Entero/Rhino (PCR) (Not Detect) 08/31/22 08/31/22 08/31/22 Range/Units 06:05 06:05 06:05 WBC 29.8 H (4.5-11.0) X10^3/uL RBC 4.82 (4.0-5.2) X10^6/uL Hgb 13.9 (12.0-16.0) g/dL Hct 41.3 (36-46) % MCV 85.7 (80-100) fL MCH 28.8 (26-34) PG MCHC 33.6 (30-36) % RDW 13.6 (11.6-14.8) % Plt Count 345 (150-400) X10^3/uL Neut % (Auto) Not Reportable Lymph % (Auto) Not Reportable [place] % (Auto) Not Reportable Eos % (Auto) Not Reportable Baso % (Auto) Not Reportable Lymph # (Auto) Not Reportable [place] # (Auto) Not Reportable Baso # (Auto) Not Reportable Total Counted 100 Seg Neutrophils % 88.0 H (38-70) % Band Neutrophils % 4.0 (3-7) % Lymphocytes % (Manual) 5.0 L (25-45) % Monocytes % (Manual) 3.0 (2-11) % Neutrophils # (Manual) 01593 H (3442-9918) /uL Toxic Granulation Platelet Estimate Adequate on smear RBC Morphology Normal morphology PT (10.1-12.7) SECONDS INR (0.9-1.3) APTT 72 H D (26-36) SECONDS ABG pH (7.35-7.45) ABG pCO2 (35-45) mmHg ABG pO2 (80-100) mmHg ABG HCO3 (23-27) mmol/L ABG Total CO2 (23-27) mmol/L ABG O2 Saturation (95-100) % ABG Base Excess (-2-3) mmol/L FiO2 Sodium 138 (137-145) mmol/L Potassium 3.8 D (3.4-5.1) mmol/L Chloride 97 L (98-107) mmol/L Carbon Dioxide 32 (22-32) mmol/L BUN 20 H (7-17) mg/dL Creatinine 1.18 H (0.52-1.04) mg/dL Estimated GFR 57 L (>60) mL/min BUN/Creatinine Ratio 16.9 (6-22) Glucose 148 H (70-100) mg/dL Lactate (0.7-2.1) mmol/L Calcium 8.4 (8.4-10.2) mg/dL Magnesium (1.6-2.3) mg/dL Total Bilirubin 0.4 (0.2-1.3) mg/dL AST 153 H (14-36) IU/L ALT 90 H (<35) IU/L Alkaline Phosphatase 150 H (38-126) U/L Ammonia Total Creatine Kinase 8807 H CK-MB (CK-2) TNP CK-MB (CK-2) Rel Index TNP Troponin I 0.417 H* NT-Pro-B Natriuret Pep (<125) pg/mL Total Protein 8.0 (6.3-8.2) g/dL Albumin 4.1 (3.5-5.0) g/dL Globulin 3.9 (1.7-4.1) g/dL Albumin/Globulin Ratio 1.1 (1.0-2.8) Lipase 600 H D (23-300) U/L Procalcitonin (<0.5) ng/mL TSH Urine Color Urine Appearance Urine pH (4.5-8.0) Ur Specific [place] (1.000-1.035) Urine Protein (Negative) Urine Glucose (UA) (Negative) g/dL Urine Ketones (NEGATIVE) Urine Occult Blood (Negative) Urine Nitrate (Negative) Urine Bilirubin (NEGATIVE) Urine Urobilinogen (0.2) E.U./dL Ur Leukocyte Esterase (NEGATIVE) Urine RBC (0-5/HPF) Urine WBC (0-5/HPF) Ur Squamous Epith Cells (0-5/HPF) Ur Renal Epithelial Cell (0-1/HPF) Urine Bacteria (None) Ur Culture Indicated? CSF Tube Number CSF Volume CSF Appearance (Clear) CSF Color (Colorless) CSF WBC (0-5) MONO/uL CSF RBC RBC /uL CSF Mononuclear WBCs CSF Polynuclear WBCs CSF Glucose (40-70) mg/dL CSF Total Protein (12-60) mg/dL CSF C.neoform/gat PCR (Not Detect) CSF CMV DNA (PCR) (Not Detect) CSF Enterovirus (PCR) (Not Detect) CSF E. coli (PCR) (Not Detect) CSF H. influenzae (PCR) (Not Detect) CSF HSV I (PCR) (Not Detect) CSF HSV II (PCR) (Not Detect) CSF HHV 6 (PCR) (Not Detect) CSF L.monocytogenes PCR (Not Detect) CSF N. meningitidis PCR (Not Detect) CSF Parechovirus (PCR) (Not Detect) CSF S. agalactiae (PCR) (Not Detect) CSF S. pneumoniae (PCR) (Not Detect) CSF VZV (PCR) (Not Detecte) U Opiates 300ng/mL cut (Negative) Ur Oxycodone Screen (Negative) Urine Methadone Screen (Negative) Ur Barbiturates Screen (Negative) U Tricyclic Antidepress (Negative) Ur Phencyclidine Scrn (Negative) Ur Amphetamines Screen (Negative) U Methamphetamines Scrn (Negative) Ur MDMA Scrn (Ecstasy) (Negative) U Benzodiazepines Scrn (Negative) Urine Cocaine Screen (Negative) U Marijuana (THC) Screen (Negative) Ethyl Alcohol ( - 10) mg/dL Chlamy pneumoniae PCR (Not Detect) Adenovirus (PCR) (Not Detect) B. pertussis DNA (PCR) (Not Detecte) B.parapertussis DNA PCR (Not Detecte) Coronavirus OC43 (PCR) (Not Detect) Coronavirus HKU1 (PCR) (Not Detect) Coronavirus 229E (PCR) (Not Detect) SARS-CoV-2 (PCR) (Not Detecte) Coronavirus NL63 (PCR) (Not Detect) Human Metapneumovir PCR (Not Detect) Influenza Type A (PCR) (Not Detect) Influenza Type B (PCR) (Not Detect) M. pneumoniae (PCR) (Not Detect) Parainfluenza 1 (PCR) (Not Detect) Parainfluenza 2 (PCR) (Not Detect) Parainfluenza 3 (PCR) (Not Detect) Parainfluenza 4 (PCR) (Not Detect) RSV (PCR) (Not Detect) Entero/Rhino (PCR) (Not Detect) 08/31/22 08/31/22 08/31/22 Range/Units 10:45 10:45 10:45 WBC (4.5-11.0) X10^3/uL RBC (4.0-5.2) X10^6/uL Hgb (12.0-16.0) g/dL Hct (36-46) % MCV (80-100) fL MCH (26-34) PG MCHC (30-36) % RDW (11.6-14.8) % Plt Count (150-400) X10^3/uL Neut % (Auto) Lymph % (Auto) [place] % (Auto) Eos % (Auto) Baso % (Auto) Lymph # (Auto) [place] # (Auto) Baso # (Auto) Total Counted Seg Neutrophils % (38-70) % Band Neutrophils % (3-7) % Lymphocytes % (Manual) (25-45) % Monocytes % (Manual) (2-11) % Neutrophils # (Manual) (0875-9817) /uL Toxic Granulation Platelet Estimate RBC Morphology PT (10.1-12.7) SECONDS INR (0.9-1.3) APTT (26-36) SECONDS ABG pH (7.35-7.45) ABG pCO2 (35-45) mmHg ABG pO2 (80-100) mmHg ABG HCO3 (23-27) mmol/L ABG Total CO2 (23-27) mmol/L ABG O2 Saturation (95-100) % ABG Base Excess (-2-3) mmol/L FiO2 Sodium 138 (137-145) mmol/L Potassium 3.7 (3.4-5.1) mmol/L Chloride 102 (98-107) mmol/L Carbon Dioxide 29 (22-32) mmol/L BUN 18 H (7-17) mg/dL Creatinine 0.92 (0.52-1.04) mg/dL Estimated GFR > 60 (>60) mL/min BUN/Creatinine Ratio 19.6 (6-22) Glucose 102 H (70-100) mg/dL Lactate 1.5 (0.7-2.1) mmol/L Calcium 8.2 L (8.4-10.2) mg/dL Magnesium (1.6-2.3) mg/dL Total Bilirubin 0.5 (0.2-1.3) mg/dL AST 139 H (14-36) IU/L ALT 85 H (<35) IU/L Alkaline Phosphatase 129 H (38-126) U/L Ammonia Total Creatine Kinase 6211 H CK-MB (CK-2) TNP CK-MB (CK-2) Rel Index TNP Troponin I 0.354 H* NT-Pro-B Natriuret Pep (<125) pg/mL Total Protein 7.7 (6.3-8.2) g/dL Albumin 4.0 (3.5-5.0) g/dL Globulin 3.7 (1.7-4.1) g/dL Albumin/Globulin Ratio 1.1 (1.0-2.8) Lipase (23-300) U/L Procalcitonin 1.58 H (<0.5) ng/mL TSH Urine Color Urine Appearance Urine pH (4.5-8.0) Ur Specific [place] (1.000-1.035) Urine Protein (Negative) Urine Glucose (UA) (Negative) g/dL Urine Ketones (NEGATIVE) Urine Occult Blood (Negative) Urine Nitrate (Negative) Urine Bilirubin (NEGATIVE) Urine Urobilinogen (0.2) E.U./dL Ur Leukocyte Esterase (NEGATIVE) Urine RBC (0-5/HPF) Urine WBC (0-5/HPF) Ur Squamous Epith Cells (0-5/HPF) Ur Renal Epithelial Cell (0-1/HPF) Urine Bacteria (None) Ur Culture Indicated? CSF Tube Number CSF Volume CSF Appearance (Clear) CSF Color (Colorless) CSF WBC (0-5) MONO/uL CSF RBC RBC /uL CSF Mononuclear WBCs CSF Polynuclear WBCs CSF Glucose (40-70) mg/dL CSF Total Protein (12-60) mg/dL CSF C.neoform/gat PCR (Not Detect) CSF CMV DNA (PCR) (Not Detect) CSF Enterovirus (PCR) (Not Detect) CSF E. coli (PCR) (Not Detect) CSF H. influenzae (PCR) (Not Detect) CSF HSV I (PCR) (Not Detect) CSF HSV II (PCR) (Not Detect) CSF HHV 6 (PCR) (Not Detect) CSF L.monocytogenes PCR (Not Detect) CSF N. meningitidis PCR (Not Detect) CSF Parechovirus (PCR) (Not Detect) CSF S. agalactiae (PCR) (Not Detect) CSF S. pneumoniae (PCR) (Not Detect) CSF VZV (PCR) (Not Detecte) U Opiates 300ng/mL cut (Negative) Ur Oxycodone Screen (Negative) Urine Methadone Screen (Negative) Ur Barbiturates Screen (Negative) U Tricyclic Antidepress (Negative) Ur Phencyclidine Scrn (Negative) Ur Amphetamines Screen (Negative) U Methamphetamines Scrn (Negative) Ur MDMA Scrn (Ecstasy) (Negative) U Benzodiazepines Scrn (Negative) Urine Cocaine Screen (Negative) U Marijuana (THC) Screen (Negative) Ethyl Alcohol ( - 10) mg/dL Chlamy pneumoniae PCR (Not Detect) Adenovirus (PCR) (Not Detect) B. pertussis DNA (PCR) (Not Detecte) B.parapertussis DNA PCR (Not Detecte) Coronavirus OC43 (PCR) (Not Detect) Coronavirus HKU1 (PCR) (Not Detect) Coronavirus 229E (PCR) (Not Detect) SARS-CoV-2 (PCR) (Not Detecte) Coronavirus NL63 (PCR) (Not Detect) Human Metapneumovir PCR (Not Detect) Influenza Type A (PCR) (Not Detect) Influenza Type B (PCR) (Not Detect) M. pneumoniae (PCR) (Not Detect) Parainfluenza 1 (PCR) (Not Detect) Parainfluenza 2 (PCR) (Not Detect) Parainfluenza 3 (PCR) (Not Detect) Parainfluenza 4 (PCR) (Not Detect) RSV (PCR) (Not Detect) Entero/Rhino (PCR) (Not Detect) 08/31/22 Range/Units 12:30 WBC (4.5-11.0) X10^3/uL RBC (4.0-5.2) X10^6/uL Hgb (12.0-16.0) g/dL Hct (36-46) % MCV (80-100) fL MCH (26-34) PG MCHC (30-36) % RDW (11.6-14.8) % Plt Count (150-400) X10^3/uL Neut % (Auto) Lymph % (Auto) [place] % (Auto) Eos % (Auto) Baso % (Auto) Lymph # (Auto) [place] # (Auto) Baso # (Auto) Total Counted Seg Neutrophils % (38-70) % Band Neutrophils % (3-7) % Lymphocytes % (Manual) (25-45) % Monocytes % (Manual) (2-11) % Neutrophils # (Manual) (7741-6767) /uL Toxic Granulation Platelet Estimate RBC Morphology PT (10.1-12.7) SECONDS INR (0.9-1.3) APTT 51 H D (26-36) SECONDS ABG pH (7.35-7.45) ABG pCO2 (35-45) mmHg ABG pO2 (80-100) mmHg ABG HCO3 (23-27) mmol/L ABG Total CO2 (23-27) mmol/L ABG O2 Saturation (95-100) % ABG Base Excess (-2-3) mmol/L FiO2 Sodium (137-145) mmol/L Potassium (3.4-5.1) mmol/L Chloride (98-107) mmol/L Carbon Dioxide (22-32) mmol/L BUN (7-17) mg/dL Creatinine (0.52-1.04) mg/dL Estimated GFR (>60) mL/min BUN/Creatinine Ratio (6-22) Glucose (70-100) mg/dL Lactate (0.7-2.1) mmol/L Calcium (8.4-10.2) mg/dL Magnesium (1.6-2.3) mg/dL Total Bilirubin (0.2-1.3) mg/dL AST (14-36) IU/L ALT (<35) IU/L Alkaline Phosphatase (38-126) U/L Ammonia Total Creatine Kinase CK-MB (CK-2) CK-MB (CK-2) Rel Index Troponin I NT-Pro-B Natriuret Pep (<125) pg/mL Total Protein (6.3-8.2) g/dL Albumin (3.5-5.0) g/dL Globulin (1.7-4.1) g/dL Albumin/Globulin Ratio (1.0-2.8) Lipase (23-300) U/L Procalcitonin (<0.5) ng/mL TSH Urine Color Urine Appearance Urine pH (4.5-8.0) Ur Specific [place] (1.000-1.035) Urine Protein (Negative) Urine Glucose (UA) (Negative) g/dL Urine Ketones (NEGATIVE) Urine Occult Blood (Negative) Urine Nitrate (Negative) Urine Bilirubin (NEGATIVE) Urine Urobilinogen (0.2) E.U./dL Ur Leukocyte Esterase (NEGATIVE) Urine RBC (0-5/HPF) Urine WBC (0-5/HPF) Ur Squamous Epith Cells (0-5/HPF) Ur Renal Epithelial Cell (0-1/HPF) Urine Bacteria (None) Ur Culture Indicated? CSF Tube Number CSF Volume CSF Appearance (Clear) CSF Color (Colorless) CSF WBC (0-5) MONO/uL CSF RBC RBC /uL CSF Mononuclear WBCs CSF Polynuclear WBCs CSF Glucose (40-70) mg/dL CSF Total Protein (12-60) mg/dL CSF C.neoform/gat PCR (Not Detect) CSF CMV DNA (PCR) (Not Detect) CSF Enterovirus (PCR) (Not Detect) CSF E. coli (PCR) (Not Detect) CSF H. influenzae (PCR) (Not Detect) CSF HSV I (PCR) (Not Detect) CSF HSV II (PCR) (Not Detect) CSF HHV 6 (PCR) (Not Detect) CSF L.monocytogenes PCR (Not Detect) CSF N. meningitidis PCR (Not Detect) CSF Parechovirus (PCR) (Not Detect) CSF S. agalactiae (PCR) (Not Detect) CSF S. pneumoniae (PCR) (Not Detect) CSF VZV (PCR) (Not Detecte) U Opiates 300ng/mL cut (Negative) Ur Oxycodone Screen (Negative) Urine Methadone Screen (Negative) Ur Barbiturates Screen (Negative) U Tricyclic Antidepress (Negative) Ur Phencyclidine Scrn (Negative) Ur Amphetamines Screen (Negative) U Methamphetamines Scrn (Negative) Ur MDMA Scrn (Ecstasy) (Negative) U Benzodiazepines Scrn (Negative) Urine Cocaine Screen (Negative) U Marijuana (THC) Screen (Negative) Ethyl Alcohol ( - 10) mg/dL Chlamy pneumoniae PCR (Not Detect) Adenovirus (PCR) (Not Detect) B. pertussis DNA (PCR) (Not Detecte) B.parapertussis DNA PCR (Not Detecte) Coronavirus OC43 (PCR) (Not Detect) Coronavirus HKU1 (PCR) (Not Detect) Coronavirus 229E (PCR) (Not Detect) SARS-CoV-2 (PCR) (Not Detecte) Coronavirus NL63 (PCR) (Not Detect) Human Metapneumovir PCR (Not Detect) Influenza Type A (PCR) (Not Detect) Influenza Type B (PCR) (Not Detect) M. pneumoniae (PCR) (Not Detect) Parainfluenza 1 (PCR) (Not Detect) Parainfluenza 2 (PCR) (Not Detect) Parainfluenza 3 (PCR) (Not Detect) Parainfluenza 4 (PCR) (Not Detect) RSV (PCR) (Not Detect) Entero/Rhino (PCR) (Not Detect) Point of Care Testing Glucose POC [address] scan - head: Radiologist's Impression: PROCEDURE:? CT HEAD/BRAIN WO CON ? INDICATIONS:? Hearing loss ? TECHNIQUE:? Noncontrast 4.5 mm thick angled axial sections acquired from the foramen magnum to the vertex, with coronal and sagittal reformats.? For radiation dose reduction, the following was used:? automated exposure control, adjustment of mA and/or kV according to patient size.? ? COMPARISON:? None. ? FINDINGS:? Image quality:? Excellent.? ? CSF spaces:? Basal cisterns are patent.? No extra-axial fluid collections.? Ventricles are normal in size and shape.? ? Brain:? No intracranial hemorrhage, mass, or mass effect.? Ferraro-white matter interface appears preserved.? ? Skull and face:? Calvarium and visualized facial bones are intact, without suspicious lesions.? ? Sinuses:? Visualized sinuses and mastoids are clear.? ? IMPRESSION:? ? 1. No acute intracranial abnormality. Chest x-ray: Radiologist's Impression: PROCEDURE:? XR CHEST 1V ? INDICATIONS:? Hypoxia ? TECHNIQUE:? One view of the chest was acquired.? ? COMPARISON:? None. ? FINDINGS:? ? Surgical changes and devices:? Surgical clips project over the superior right hemithorax. ? Lungs and pleura:? There is pulmonary vascular prominence suggestive of pulmona ry edema.? No pleural effusions or pneumothorax.? ? Mediastinum:? Mediastinal contours appear normal.? Heart size is normal.? ? Bones and chest wall:? No suspicious bony lesions.? Overlying soft tissues appear unremarkable.? ? IMPRESSION:? ? 1. Pulmonary vascular prominence suggestive of pulmonary edema. CT scan - chest: Radiologist's Impression: PROCEDURE:? CT ANGIO CHEST PE PROTOCOL ? INDICATIONS:? Chest pain, shortness of breath, tachycardia ? TECHNIQUE:? After the administration of intravenous contrast, 2 mm thick sections acquired from the pulmonary apices to the posterior costophrenic angles.? 3-dimensional maximum intensity projection (MIP) coronal and sagittal reformats were then acquired through the thorax.? For radiation dose reduction, the following was used:? automated exposure control, adjustment of mA and/or kV according to patient size.? ? COMPARISON:? None. ? FINDINGS:? Image quality:? Excellent.? ? Pulmonary arteries:? Pulmonary arteries are normal in size, and demonstrate no intraluminal filling defects to suggest central pulmonary embolism.? ? Lower Neck: No lymphadenopathy by size criteria. Thyroid:? Visualized thyroid demonstrates no discrete nodules. Axillae: No lymphadenopathy by size criteria. Chest Wall:? Unremarkable.? Bones: Visualized osseous structures demonstrate no suspicious lesions. ? Lungs and Airways:? There are patchy bilateral areas of consolidation with a basilar predominance in the lower lobes.? The findings are suggestive of multifocal pneumonia.? Indistinct ground-glass opacities are demonstrated bilaterally which are nonspecific and may reflect pulmonary edema.? The trachea and central airways are patent. Pleura: No pneumothorax or pleural effusions.? ? Heart: Heart size is normal.? No pericardial effusion. Thoracic Vessels: The thoracic aorta is normal in size.? Mediastinum and Malou: No lymphadenopathy by size criteria. Esophagus: No wall thickening. No hiatal hernia. ? Abdomen:? Visualized upper abdomen demonstrates hypoattenuation of the liver consistent with fatty infiltration. ? IMPRESSION:? ? 1. No evidence of pulmonary embolism. ? 2. Bilateral patchy areas of consolidation with a lower lobe predominance.? The findings are nonspecific but likely represent multifocal pneumonia. ? 3. Bilateral indistinct ground-glass opacities are also nonspecific and may reflect sequelae of pneumonia versus pulmonary edema or an inflammatory process. CTA - brain/neck: Radiologist's Impression: P wall ROCEDURE:? CT ANGIO HEAD AND NECK ? INDICATIONS:? Headache, hearing loss, NSTEMI eval for dissection ? TECHNIQUE:? After the administration of intravenous contrast, 1 mm thick sections acquired from the aortic arch through the [place] of [place].? Post-contrast 4.5 mm thick sections then re-acquired from the foramen magnum to the vertex.? 3-dimensional baxhjhc-wnhfxiqrv-ahltqoneqa (MIP) and/or volume rendering reformats were acquired of the central intracranial vasculature and neck separately. For radiation dose reduction, the following was used:? automated exposure control, adjustment of mA and/or kV according to patient size.? ? COMPARISON:? [facility], CT, CT ANGIO CHEST PE PROTOCOL, 08/30/2022, 23:28.? [facility], CT, CT HEAD/BRAIN WO CON, 08/30/2022, 20:41. ? FINDINGS:? Image quality:? Excellent.? ? BRAIN:? CSF spaces:? Basal cisterns are patent.? No extra-axial fluid collections.? Ventricles are normal in size and shape.? ? Brain:? No intracranial hemorrhage, mass, or mass effect.? Ferraro-white matter interface appears preserved.? No abnormal intracranial enhancement.? ? Skull and face:? Calvarium and facial bones appear intact, without suspicious lesions.? Orbits appear normal.? ? Sinuses:? Sinuses and mastoids are clear.? ? HEAD CT ANGIOGRAPHY:? Anterior circulation:? Intracranial internal carotid arteries are normal in size and appear patent bilaterally.? There is mild atherosclerotic calcification along the cavernous segments of the internal carotid arteries.? The paired anterior cerebral arteries appear patent bilaterally.? The anterior communicating artery also appears patent. The middle cerebral arteries appear patent bilaterally.? No high-grade stenosis, occlusion, or filling defects.? No cerebral aneurysms identified. ? Posterior circulation:? Visualized portions of the vertebral arteries demonstrate normal caliber, and join to form a patent basilar artery.? The posterior cerebral arteries appears patent bilaterally.? No high-grade stenosis, occlusion, or filling defects.? No cerebral aneurysms identified. ? NECK CT ANGIOGRAPHY:? Carotid system:? The great vessels demonstrate common origin of the right brachiocephalic and left common carotid arteries as they arise from the aortic arch.? The origins of the common carotid arteries appear patent.? The common carotid arteries demonstrate normal caliber and courses.? The bifurcation regions are both widely patent.? The internal carotid arteries demonstrate normal calibers and courses.? ? Posterior circulation:? The origins of the vertebral arteries both appear patent.? The more superior extracranial portions of both vertebral arteries also demonstrate normal courses and calibers.? They join to form a patent basilar artery.? ? Soft tissues:? Visualized thorax demonstrates patchy bilateral ground-glass opacities within the visualized lungs. ? Bones:? No suspicious bony lesions.? Visualized cervical spine demonstrates straightening of the cervical lordosis.? There is multilevel degenerative disc disease and facet joint arthropathy.? ? IMPRESSION:? ? 1. No evidence of arterial dissection. ? 2. No high-grade stenosis or occlusion of the central intracranial arteries. ? 3. No high-grade stenosis or occlusion of the head and neck arteries.? ? Any quantitative measurements of stenosis were performed using NASCET criteria.? ECG Data Attestation: I personally reviewed and interpreted this ECG as follows: Interpretation: Sinus tachycardia Ventricular rate of 118 Normal axis Normal QRS No ST T wave changes MDM Narrative Medical decision making narrative: Patient's presenting symptoms were somewhat confusing. Patient was having a headache and neck pain in back pain but also hearing loss. Initially unsure as to whether not there was a trauma also somewhat unsure as to what symptoms she presented with her new as she kept stating that she had a ?autonomic dysfunction? and also POTS and also fibromyalgia. Her friend at bedside states that these medical conditions sometimes cause her to ?pass out? patient denied any illicit drugs or other intoxicating substances. Upon arrival patient was hypoxic to the mid 80s. She was placed on oxygen. She was tachycardic. Was afebrile. Labs started to return which showed a significant leukocytosis. Rocephin was ordered. Blood cultures were obtained. Given the nature of her presenting symptoms to include tachycardia and leukocytosis and headache neck pain a lumbar puncture was performed without incident. After the lumbar puncture, antibiotic treatment for meningitis was started. When the patient was sat up in order to do the lumbar puncture was noted that she had a vesicular lesion on the posterior aspect of her cervical spine. Initially thought that this was zoster however it did cross midline. It very well could be a her panic infection. A viral culture was obtained. Because of this finding she was also started on acyclovir at lumbar puncture. The results eventually were not convincing for meningitis. Ativan seemed to tremendously help her symptoms and allow her to sleep overnight. Patient was also found to have a elevated troponin. Patient was started on heparin. She would a nonischemic EKG. Repeat troponins show a rise despite the heparin. Patient also had a significantly elevated BNP. CT scan of the chest did not show any signs of pulmonary embolism however it did show signs of pulmonary edema and also potential pneumonia. She was given Lasix and she did diurese. Remaining CT scans did not show any signs of acute intracranial pathology. Patient took continues to state that she is having problems hearing. Her she where can hear what you were saying as she does answer questions however you do have to speak loud. She states that she really hears is muffled voices. I did discuss the case with cardio and she had [facility] who stated that the elevated troponin was most likely related to her other symptoms. I then discussed the case with Dr. Sands hospitalist at [facility] who accepts the patient in transfer. Care turned over to day provider to continue to observe until disposition can not be met. <Josse Patel, - Last Filed: 08/31/22 16:42> Lab Data Labs: Lab Results 08/30/22 08/30/22 08/30/22 Range/Units 20:45 20:55 21:19 WBC (4.5-11.0) X10^3/uL RBC (4.0-5.2) X10^6/uL Hgb (12.0-16.0) g/dL Hct (36-46) % MCV (80-100) fL MCH (26-34) PG MCHC (30-36) % RDW (11.6-14.8) % Plt Count (150-400) X10^3/uL Neut % (Auto) Lymph % (Auto) [place] % (Auto) Eos % (Auto) Baso % (Auto) Lymph # (Auto) [place] # (Auto) Baso # (Auto) Total Counted Seg Neutrophils % (38-70) % Band Neutrophils % (3-7) % Lymphocytes % (Manual) (25-45) % Monocytes % (Manual) (2-11) % Neutrophils # (Manual) (0772-1869) /uL Toxic Granulation Platelet Estimate RBC Morphology PT (10.1-12.7) SECONDS INR (0.9-1.3) APTT (26-36) SECONDS ABG pH 7.37 (7.35-7.45) ABG pCO2 45.7 H (35-45) mmHg ABG pO2 73 L (80-100) mmHg ABG HCO3 26 (23-27) mmol/L ABG Total CO2 28 H (23-27) mmol/L ABG O2 Saturation 94 L (95-100) % ABG Base Excess 1.0 (-2-3) mmol/L FiO2 30 Sodium (137-145) mmol/L Potassium (3.4-5.1) mmol/L Chloride (98-107) mmol/L Carbon Dioxide (22-32) mmol/L BUN (7-17) mg/dL Creatinine (0.52-1.04) mg/dL Estimated GFR (>60) mL/min BUN/Creatinine Ratio (6-22) Glucose (70-100) mg/dL Lactate (0.7-2.1) mmol/L Calcium (8.4-10.2) mg/dL Magnesium (1.6-2.3) mg/dL Total Bilirubin (0.2-1.3) mg/dL AST (14-36) IU/L ALT (<35) IU/L Alkaline Phosphatase (38-126) U/L Ammonia Total Creatine Kinase CK-MB (CK-2) CK-MB (CK-2) Rel Index Troponin I NT-Pro-B Natriuret Pep (<125) pg/mL Total Protein (6.3-8.2) g/dL Albumin (3.5-5.0) g/dL Globulin (1.7-4.1) g/dL Albumin/Globulin Ratio (1.0-2.8) Lipase (23-300) U/L Procalcitonin (<0.5) ng/mL TSH Urine Color Yellow Urine Appearance Clear Urine pH 5.5 (4.5-8.0) Ur Specific [place] 1.025 (1.000-1.035) Urine Protein 1+ H (Negative) Urine Glucose (UA) Trace H (Negative) g/dL Urine Ketones Negative (NEGATIVE) Urine Occult Blood 3+ H (Negative) Urine Nitrate Negative (Negative) Urine Bilirubin Negative (NEGATIVE) Urine Urobilinogen 0.2 (0.2) E.U./dL Ur Leukocyte Esterase Negative (NEGATIVE) Urine RBC 1-5/hpf (0-5/HPF) Urine WBC None seen (0-5/HPF) Ur Squamous Epith Cells 1-5 /hpf (0-5/HPF) Ur Renal Epithelial Cell 1-5/hpf H (0-1/HPF) Urine Bacteria Few (2-10) H (None) Ur Culture Indicated? Cult not indicated CSF Tube Number CSF Volume CSF Appearance (Clear) CSF Color (Colorless) CSF WBC (0-5) MONO/uL CSF RBC RBC /uL CSF Mononuclear WBCs CSF Polynuclear WBCs CSF Glucose (40-70) mg/dL CSF Total Protein (12-60) mg/dL CSF C.neoform/gat PCR (Not Detect) CSF CMV DNA (PCR) (Not Detect) CSF Enterovirus (PCR) (Not Detect) CSF E. coli (PCR) (Not Detect) CSF H. influenzae (PCR) (Not Detect) CSF HSV I (PCR) (Not Detect) CSF HSV II (PCR) (Not Detect) CSF HHV 6 (PCR) (Not Detect) CSF L.monocytogenes PCR (Not Detect) CSF N. meningitidis PCR (Not Detect) CSF Parechovirus (PCR) (Not Detect) CSF S. agalactiae (PCR) (Not Detect) CSF S. pneumoniae (PCR) (Not Detect) CSF VZV (PCR) (Not Detecte) U Opiates 300ng/mL cut (Negative) Ur Oxycodone Screen (Negative) Urine Methadone Screen (Negative) Ur Barbiturates Screen (Negative) U Tricyclic Antidepress (Negative) Ur Phencyclidine Scrn (Negative) Ur Amphetamines Screen (Negative) U Methamphetamines Scrn (Negative) Ur MDMA Scrn (Ecstasy) (Negative) U Benzodiazepines Scrn (Negative) Urine Cocaine Screen (Negative) U Marijuana (THC) Screen (Negative) Ethyl Alcohol ( - 10) mg/dL Chlamy pneumoniae PCR Not detected (Not Detect) Adenovirus (PCR) Not detected (Not Detect) B. pertussis DNA (PCR) Not detected (Not Detecte) B.parapertussis DNA PCR Not detected (Not Detecte) Coronavirus OC43 (PCR) Not detected (Not Detect) Coronavirus HKU1 (PCR) Not detected (Not Detect) Coronavirus 229E (PCR) Not detected (Not Detect) SARS-CoV-2 (PCR) Not detected (Not Detecte) Coronavirus NL63 (PCR) Not detected (Not Detect) Human Metapneumovir PCR Not detected (Not Detect) Influenza Type A (PCR) Not detected (Not Detect) Influenza Type B (PCR) Not detected (Not Detect) M. pneumoniae (PCR) Not detected (Not Detect) Parainfluenza 1 (PCR) Not detected (Not Detect) Parainfluenza 2 (PCR) Not detected (Not Detect) Parainfluenza 3 (PCR) Not detected (Not Detect) Parainfluenza 4 (PCR) Not detected (Not Detect) RSV (PCR) Not detected (Not Detect) Entero/Rhino (PCR) Not detected (Not Detect) 08/30/22 08/30/22 08/30/22 Range/Units 21:19 21:55 21:55 WBC 31.2 H* (4.5-11.0) X10^3/uL RBC 4.93 (4.0-5.2) X10^6/uL Hgb 14.2 (12.0-16.0) g/dL Hct 42.6 (36-46) % MCV 86.3 (80-100) fL MCH 28.8 (26-34) PG MCHC 33.4 (30-36) % RDW 13.1 (11.6-14.8) % Plt Count 368 (150-400) X10^3/uL Neut % (Auto) Not Reportable Lymph % (Auto) Not Reportable [place] % (Auto) Not Reportable Eos % (Auto) Not Reportable Baso % (Auto) Not Reportable Lymph # (Auto) Not Reportable [place] # (Auto) Not Reportable Baso # (Auto) Not Reportable Total Counted 100 Seg Neutrophils % 93.0 H (38-70) % Band Neutrophils % 4.0 (3-7) % Lymphocytes % (Manual) 2.0 L (25-45) % Monocytes % (Manual) 1.0 L (2-11) % Neutrophils # (Manual) 72439 H (8628-1330) /uL Toxic Granulation Present H Platelet Estimate RBC Morphology Normal morphology PT (10.1-12.7) SECONDS INR (0.9-1.3) APTT (26-36) SECONDS ABG pH (7.35-7.45) ABG pCO2 (35-45) mmHg ABG pO2 (80-100) mmHg ABG HCO3 (23-27) mmol/L ABG Total CO2 (23-27) mmol/L ABG O2 Saturation (95-100) % ABG Base Excess (-2-3) mmol/L FiO2 Sodium 138 (137-145) mmol/L Potassium 5.2 H (3.4-5.1) mmol/L Chloride 96 L (98-107) mmol/L Carbon Dioxide 31 (22-32) mmol/L BUN 21 H (7-17) mg/dL Creatinine 1.56 H (0.52-1.04) mg/dL Estimated GFR 41 L (>60) mL/min BUN/Creatinine Ratio 13.5 (6-22) Glucose 110 H (70-100) mg/dL Lactate (0.7-2.1) mmol/L Calcium 9.1 (8.4-10.2) mg/dL Magnesium 1.8 (1.6-2.3) mg/dL Total Bilirubin 0.6 (0.2-1.3) mg/dL AST 167 H (14-36) IU/L ALT 96 H (<35) IU/L Alkaline Phosphatase 156 H (38-126) U/L Ammonia Total Creatine Kinase CK-MB (CK-2) CK-MB (CK-2) Rel Index Troponin I NT-Pro-B Natriuret Pep (<125) pg/mL Total Protein 8.0 (6.3-8.2) g/dL Albumin 4.6 (3.5-5.0) g/dL Globulin 3.4 (1.7-4.1) g/dL Albumin/Globulin Ratio 1.4 (1.0-2.8) Lipase 1315 H (23-300) U/L Procalcitonin (<0.5) ng/mL TSH Urine Color Urine Appearance Urine pH (4.5-8.0) Ur Specific [place] (1.000-1.035) Urine Protein (Negative) Urine Glucose (UA) (Negative) g/dL Urine Ketones (NEGATIVE) Urine Occult Blood (Negative) Urine Nitrate (Negative) Urine Bilirubin (NEGATIVE) Urine Urobilinogen (0.2) E.U./dL Ur Leukocyte Esterase (NEGATIVE) Urine RBC (0-5/HPF) Urine WBC (0-5/HPF) Ur Squamous Epith Cells (0-5/HPF) Ur Renal Epithelial Cell (0-1/HPF) Urine Bacteria (None) Ur Culture Indicated? CSF Tube Number CSF Volume CSF Appearance (Clear) CSF Color (Colorless) CSF WBC (0-5) MONO/uL CSF RBC RBC /uL CSF Mononuclear WBCs CSF Polynuclear WBCs CSF Glucose (40-70) mg/dL CSF Total Protein (12-60) mg/dL CSF C.neoform/gat PCR (Not Detect) CSF CMV DNA (PCR) (Not Detect) CSF Enterovirus (PCR) (Not Detect) CSF E. coli (PCR) (Not Detect) CSF H. influenzae (PCR) (Not Detect) CSF HSV I (PCR) (Not Detect) CSF HSV II (PCR) (Not Detect) CSF HHV 6 (PCR) (Not Detect) CSF L.monocytogenes PCR (Not Detect) CSF N. meningitidis PCR (Not Detect) CSF Parechovirus (PCR) (Not Detect) CSF S. agalactiae (PCR) (Not Detect) CSF S. pneumoniae (PCR) (Not Detect) CSF VZV (PCR) (Not Detecte) U Opiates 300ng/mL cut Negative (Negative) Ur Oxycodone Screen Negative (Negative) Urine Methadone Screen Positive H (Negative) Ur Barbiturates Screen Negative (Negative) U Tricyclic Antidepress Positive H (Negative) Ur Phencyclidine Scrn Negative (Negative) Ur Amphetamines Screen Negative (Negative) U Methamphetamines Scrn Negative (Negative) Ur MDMA Scrn (Ecstasy) Negative (Negative) U Benzodiazepines Scrn Negative (Negative) Urine Cocaine Screen Negative (Negative) U Marijuana (THC) Screen Negative (Negative) Ethyl Alcohol < 10 ( - 10) mg/dL Chlamy pneumoniae PCR (Not Detect) Adenovirus (PCR) (Not Detect) B. pertussis DNA (PCR) (Not Detecte) B.parapertussis DNA PCR (Not Detecte) Coronavirus OC43 (PCR) (Not Detect) Coronavirus HKU1 (PCR) (Not Detect) Coronavirus 229E (PCR) (Not Detect) SARS-CoV-2 (PCR) (Not Detecte) Coronavirus NL63 (PCR) (Not Detect) Human Metapneumovir PCR (Not Detect) Influenza Type A (PCR) (Not Detect) Influenza Type B (PCR) (Not Detect) M. pneumoniae (PCR) (Not Detect) Parainfluenza 1 (PCR) (Not Detect) Parainfluenza 2 (PCR) (Not Detect) Parainfluenza 3 (PCR) (Not Detect) Parainfluenza 4 (PCR) (Not Detect) RSV (PCR) (Not Detect) Entero/Rhino (PCR) (Not Detect) 08/30/22 08/30/22 08/30/22 Range/Units 21:55 21:55 21:55 WBC (4.5-11.0) X10^3/uL RBC (4.0-5.2) X10^6/uL Hgb (12.0-16.0) g/dL Hct (36-46) % MCV (80-100) fL MCH (26-34) PG MCHC (30-36) % RDW (11.6-14.8) % Plt Count (150-400) X10^3/uL Neut % (Auto) Lymph % (Auto) [place] % (Auto) Eos % (Auto) Baso % (Auto) Lymph # (Auto) [place] # (Auto) Baso # (Auto) Total Counted Seg Neutrophils % (38-70) % Band Neutrophils % (3-7) % Lymphocytes % (Manual) (25-45) % Monocytes % (Manual) (2-11) % Neutrophils # (Manual) (2486-0792) /uL Toxic Granulation Platelet Estimate RBC Morphology PT (10.1-12.7) SECONDS INR (0.9-1.3) APTT (26-36) SECONDS ABG pH (7.35-7.45) ABG pCO2 (35-45) mmHg ABG pO2 (80-100) mmHg ABG HCO3 (23-27) mmol/L ABG Total CO2 (23-27) mmol/L ABG O2 Saturation (95-100) % ABG Base Excess (-2-3) mmol/L FiO2 Sodium (137-145) mmol/L Potassium (3.4-5.1) mmol/L Chloride (98-107) mmol/L Carbon Dioxide (22-32) mmol/L BUN (7-17) mg/dL Creatinine (0.52-1.04) mg/dL Estimated GFR (>60) mL/min BUN/Creatinine Ratio (6-22) Glucose (70-100) mg/dL Lactate (0.7-2.1) mmol/L Calcium (8.4-10.2) mg/dL Magnesium (1.6-2.3) mg/dL Total Bilirubin (0.2-1.3) mg/dL AST (14-36) IU/L ALT (<35) IU/L Alkaline Phosphatase (38-126) U/L Ammonia Cancelled Total Creatine Kinase CK-MB (CK-2) CK-MB (CK-2) Rel Index Troponin I NT-Pro-B Natriuret Pep (<125) pg/mL Total Protein (6.3-8.2) g/dL Albumin (3.5-5.0) g/dL Globulin (1.7-4.1) g/dL Albumin/Globulin Ratio (1.0-2.8) Lipase (23-300) U/L Procalcitonin 2.76 H (<0.5) ng/mL TSH Cancelled Urine Color Urine Appearance Urine pH (4.5-8.0) Ur Specific [place] (1.000-1.035) Urine Protein (Negative) Urine Glucose (UA) (Negative) g/dL Urine Ketones (NEGATIVE) Urine Occult Blood (Negative) Urine Nitrate (Negative) Urine Bilirubin (NEGATIVE) Urine Urobilinogen (0.2) E.U./dL Ur Leukocyte Esterase (NEGATIVE) Urine RBC (0-5/HPF) Urine WBC (0-5/HPF) Ur Squamous Epith Cells (0-5/HPF) Ur Renal Epithelial Cell (0-1/HPF) Urine Bacteria (None) Ur Culture Indicated? CSF Tube Number CSF Volume CSF Appearance (Clear) CSF Color (Colorless) CSF WBC (0-5) MONO/uL CSF RBC RBC /uL CSF Mononuclear WBCs CSF Polynuclear WBCs CSF Glucose (40-70) mg/dL CSF Total Protein (12-60) mg/dL CSF C.neoform/gat PCR (Not Detect) CSF CMV DNA (PCR) (Not Detect) CSF Enterovirus (PCR) (Not Detect) CSF E. coli (PCR) (Not Detect) CSF H. influenzae (PCR) (Not Detect) CSF HSV I (PCR) (Not Detect) CSF HSV II (PCR) (Not Detect) CSF HHV 6 (PCR) (Not Detect) CSF L.monocytogenes PCR (Not Detect) CSF N. meningitidis PCR (Not Detect) CSF Parechovirus (PCR) (Not Detect) CSF S. agalactiae (PCR) (Not Detect) CSF S. pneumoniae (PCR) (Not Detect) CSF VZV (PCR) (Not Detecte) U Opiates 300ng/mL cut (Negative) Ur Oxycodone Screen (Negative) Urine Methadone Screen (Negative) Ur Barbiturates Screen (Negative) U Tricyclic Antidepress (Negative) Ur Phencyclidine Scrn (Negative) Ur Amphetamines Screen (Negative) U Methamphetamines Scrn (Negative) Ur MDMA Scrn (Ecstasy) (Negative) U Benzodiazepines Scrn (Negative) Urine Cocaine Screen (Negative) U Marijuana (THC) Screen (Negative) Ethyl Alcohol ( - 10) mg/dL Chlamy pneumoniae PCR (Not Detect) Adenovirus (PCR) (Not Detect) B. pertussis DNA (PCR) (Not Detecte) B.parapertussis DNA PCR (Not Detecte) Coronavirus OC43 (PCR) (Not Detect) Coronavirus HKU1 (PCR) (Not Detect) Coronavirus 229E (PCR) (Not Detect) SARS-CoV-2 (PCR) (Not Detecte) Coronavirus NL63 (PCR) (Not Detect) Human Metapneumovir PCR (Not Detect) Influenza Type A (PCR) (Not Detect) Influenza Type B (PCR) (Not Detect) M. pneumoniae (PCR) (Not Detect) Parainfluenza 1 (PCR) (Not Detect) Parainfluenza 2 (PCR) (Not Detect) Parainfluenza 3 (PCR) (Not Detect) Parainfluenza 4 (PCR) (Not Detect) RSV (PCR) (Not Detect) Entero/Rhino (PCR) (Not Detect) 08/30/22 08/30/22 08/30/22 Range/Units 21:55 22:20 22:49 WBC (4.5-11.0) X10^3/uL RBC (4.0-5.2) X10^6/uL Hgb (12.0-16.0) g/dL Hct (36-46) % MCV (80-100) fL MCH (26-34) PG MCHC (30-36) % RDW (11.6-14.8) % Plt Count (150-400) X10^3/uL Neut % (Auto) Lymph % (Auto) [place] % (Auto) Eos % (Auto) Baso % (Auto) Lymph # (Auto) [place] # (Auto) Baso # (Auto) Total Counted Seg Neutrophils % (38-70) % Band Neutrophils % (3-7) % Lymphocytes % (Manual) (25-45) % Monocytes % (Manual) (2-11) % Neutrophils # (Manual) (4113-8639) /uL Toxic Granulation Platelet Estimate RBC Morphology PT 13.1 H (10.1-12.7) SECONDS INR 1.1 (0.9-1.3) APTT 34 (26-36) SECONDS ABG pH (7.35-7.45) ABG pCO2 (35-45) mmHg ABG pO2 (80-100) mmHg ABG HCO3 (23-27) mmol/L ABG Total CO2 (23-27) mmol/L ABG O2 Saturation (95-100) % ABG Base Excess (-2-3) mmol/L FiO2 Sodium (137-145) mmol/L Potassium (3.4-5.1) mmol/L Chloride (98-107) mmol/L Carbon Dioxide (22-32) mmol/L BUN (7-17) mg/dL Creatinine (0.52-1.04) mg/dL Estimated GFR (>60) mL/min BUN/Creatinine Ratio (6-22) Glucose (70-100) mg/dL Lactate (0.7-2.1) mmol/L Calcium (8.4-10.2) mg/dL Magnesium (1.6-2.3) mg/dL Total Bilirubin (0.2-1.3) mg/dL AST (14-36) IU/L ALT (<35) IU/L Alkaline Phosphatase (38-126) U/L Ammonia Total Creatine Kinase Cancelled CK-MB (CK-2) Cancelled CK-MB (CK-2) Rel Index Cancelled Troponin I Cancelled NT-Pro-B Natriuret Pep 9260 H (<125) pg/mL Total Protein (6.3-8.2) g/dL Albumin (3.5-5.0) g/dL Globulin (1.7-4.1) g/dL Albumin/Globulin Ratio (1.0-2.8) Lipase (23-300) U/L Procalcitonin (<0.5) ng/mL TSH Urine Color Urine Appearance Urine pH (4.5-8.0) Ur Specific [place] (1.000-1.035) Urine Protein (Negative) Urine Glucose (UA) (Negative) g/dL Urine Ketones (NEGATIVE) Urine Occult Blood (Negative) Urine Nitrate (Negative) Urine Bilirubin (NEGATIVE) Urine Urobilinogen (0.2) E.U./dL Ur Leukocyte Esterase (NEGATIVE) Urine RBC (0-5/HPF) Urine WBC (0-5/HPF) Ur Squamous Epith Cells (0-5/HPF) Ur Renal Epithelial Cell (0-1/HPF) Urine Bacteria (None) Ur Culture Indicated? CSF Tube Number CSF Volume CSF Appearance (Clear) CSF Color (Colorless) CSF WBC (0-5) MONO/uL CSF RBC RBC /uL CSF Mononuclear WBCs CSF Polynuclear WBCs CSF Glucose (40-70) mg/dL CSF Total Protein (12-60) mg/dL CSF C.neoform/gat PCR (Not Detect) CSF CMV DNA (PCR) (Not Detect) CSF Enterovirus (PCR) (Not Detect) CSF E. coli (PCR) (Not Detect) CSF H. influenzae (PCR) (Not Detect) CSF HSV I (PCR) (Not Detect) CSF HSV II (PCR) (Not Detect) CSF HHV 6 (PCR) (Not Detect) CSF L.monocytogenes PCR (Not Detect) CSF N. meningitidis PCR (Not Detect) CSF Parechovirus (PCR) (Not Detect) CSF S. agalactiae (PCR) (Not Detect) CSF S. pneumoniae (PCR) (Not Detect) CSF VZV (PCR) (Not Detecte) U Opiates 300ng/mL cut (Negative) Ur Oxycodone Screen (Negative) Urine Methadone Screen (Negative) Ur Barbiturates Screen (Negative) U Tricyclic Antidepress (Negative) Ur Phencyclidine Scrn (Negative) Ur Amphetamines Screen (Negative) U Methamphetamines Scrn (Negative) Ur MDMA Scrn (Ecstasy) (Negative) U Benzodiazepines Scrn (Negative) Urine Cocaine Screen (Negative) U Marijuana (THC) Screen (Negative) Ethyl Alcohol ( - 10) mg/dL Chlamy pneumoniae PCR (Not Detect) Adenovirus (PCR) (Not Detect) B. pertussis DNA (PCR) (Not Detecte) B.parapertussis DNA PCR (Not Detecte) Coronavirus OC43 (PCR) (Not Detect) Coronavirus HKU1 (PCR) (Not Detect) Coronavirus 229E (PCR) (Not Detect) SARS-CoV-2 (PCR) (Not Detecte) Coronavirus NL63 (PCR) (Not Detect) Human Metapneumovir PCR (Not Detect) Influenza Type A (PCR) (Not Detect) Influenza Type B (PCR) (Not Detect) M. pneumoniae (PCR) (Not Detect) Parainfluenza 1 (PCR) (Not Detect) Parainfluenza 2 (PCR) (Not Detect) Parainfluenza 3 (PCR) (Not Detect) Parainfluenza 4 (PCR) (Not Detect) RSV (PCR) (Not Detect) Entero/Rhino (PCR) (Not Detect) 08/30/22 08/30/22 08/31/22 Range/Units 23:10 23:10 00:03 WBC (4.5-11.0) X10^3/uL RBC (4.0-5.2) X10^6/uL Hgb (12.0-16.0) g/dL Hct (36-46) % MCV (80-100) fL MCH (26-34) PG MCHC (30-36) % RDW (11.6-14.8) % Plt Count (150-400) X10^3/uL Neut % (Auto) Lymph % (Auto) [place] % (Auto) Eos % (Auto) Baso % (Auto) Lymph # (Auto) [place] # (Auto) Baso # (Auto) Total Counted Seg Neutrophils % (38-70) % Band Neutrophils % (3-7) % Lymphocytes % (Manual) (25-45) % Monocytes % (Manual) (2-11) % Neutrophils # (Manual) (9521-9500) /uL Toxic Granulation Platelet Estimate RBC Morphology PT (10.1-12.7) SECONDS INR (0.9-1.3) APTT (26-36) SECONDS ABG pH (7.35-7.45) ABG pCO2 (35-45) mmHg ABG pO2 (80-100) mmHg ABG HCO3 (23-27) mmol/L ABG Total CO2 (23-27) mmol/L ABG O2 Saturation (95-100) % ABG Base Excess (-2-3) mmol/L FiO2 Sodium (137-145) mmol/L Potassium (3.4-5.1) mmol/L Chloride (98-107) mmol/L Carbon Dioxide (22-32) mmol/L BUN (7-17) mg/dL Creatinine (0.52-1.04) mg/dL Estimated GFR (>60) mL/min BUN/Creatinine Ratio (6-22) Glucose (70-100) mg/dL Lactate (0.7-2.1) mmol/L Calcium (8.4-10.2) mg/dL Magnesium (1.6-2.3) mg/dL Total Bilirubin (0.2-1.3) mg/dL AST (14-36) IU/L ALT (<35) IU/L Alkaline Phosphatase (38-126) U/L Ammonia Total Creatine Kinase 7568 H CK-MB (CK-2) TNP CK-MB (CK-2) Rel Index TNP Troponin I 0.325 H* NT-Pro-B Natriuret Pep (<125) pg/mL Total Protein (6.3-8.2) g/dL Albumin (3.5-5.0) g/dL Globulin (1.7-4.1) g/dL Albumin/Globulin Ratio (1.0-2.8) Lipase (23-300) U/L Procalcitonin (<0.5) ng/mL TSH Urine Color Urine Appearance Urine pH (4.5-8.0) Ur Specific [place] (1.000-1.035) Urine Protein (Negative) Urine Glucose (UA) (Negative) g/dL Urine Ketones (NEGATIVE) Urine Occult Blood (Negative) Urine Nitrate (Negative) Urine Bilirubin (NEGATIVE) Urine Urobilinogen (0.2) E.U./dL Ur Leukocyte Esterase (NEGATIVE) Urine RBC (0-5/HPF) Urine WBC (0-5/HPF) Ur Squamous Epith Cells (0-5/HPF) Ur Renal Epithelial Cell (0-1/HPF) Urine Bacteria (None) Ur Culture Indicated? CSF Tube Number 2 CSF Volume 1.5 ml CSF Appearance Clear (Clear) CSF Color Colorless (Colorless) CSF WBC 3 (0-5) MONO/uL CSF RBC 344 RBC /uL CSF Mononuclear WBCs Not Reportable CSF Polynuclear WBCs Not Reportable CSF Glucose 87 H (40-70) mg/dL CSF Total Protein 49 (12-60) mg/dL CSF C.neoform/gat PCR Not detected (Not Detect) CSF CMV DNA (PCR) Not detected (Not Detect) CSF Enterovirus (PCR) Not detected (Not Detect) CSF E. coli (PCR) Not detected (Not Detect) CSF H. influenzae (PCR) Not detected (Not Detect) CSF HSV I (PCR) Not detected (Not Detect) CSF HSV II (PCR) Not detected (Not Detect) CSF HHV 6 (PCR) Not detected (Not Detect) CSF L.monocytogenes PCR Not detected (Not Detect) CSF N. meningitidis PCR Not detected (Not Detect) CSF Parechovirus (PCR) Not detected (Not Detect) CSF S. agalactiae (PCR) Not detected (Not Detect) CSF S. pneumoniae (PCR) Not detected (Not Detect) CSF VZV (PCR) Not detected (Not Detecte) U Opiates 300ng/mL cut (Negative) Ur Oxycodone Screen (Negative) Urine Methadone Screen (Negative) Ur Barbiturates Screen (Negative) U Tricyclic Antidepress (Negative) Ur Phencyclidine Scrn (Negative) Ur Amphetamines Screen (Negative) U Methamphetamines Scrn (Negative) Ur MDMA Scrn (Ecstasy) (Negative) U Benzodiazepines Scrn (Negative) Urine Cocaine Screen (Negative) U Marijuana (THC) Screen (Negative) Ethyl Alcohol ( - 10) mg/dL Chlamy pneumoniae PCR (Not Detect) Adenovirus (PCR) (Not Detect) B. pertussis DNA (PCR) (Not Detecte) B.parapertussis DNA PCR (Not Detecte) Coronavirus OC43 (PCR) (Not Detect) Coronavirus HKU1 (PCR) (Not Detect) Coronavirus 229E (PCR) (Not Detect) SARS-CoV-2 (PCR) (Not Detecte) Coronavirus NL63 (PCR) (Not Detect) Human Metapneumovir PCR (Not Detect) Influenza Type A (PCR) (Not Detect) Influenza Type B (PCR) (Not Detect) M. pneumoniae (PCR) (Not Detect) Parainfluenza 1 (PCR) (Not Detect) Parainfluenza 2 (PCR) (Not Detect) Parainfluenza 3 (PCR) (Not Detect) Parainfluenza 4 (PCR) (Not Detect) RSV (PCR) (Not Detect) Entero/Rhino (PCR) (Not Detect) 08/31/22 08/31/22 08/31/22 Range/Units 06:05 06:05 06:05 WBC 29.8 H (4.5-11.0) X10^3/uL RBC 4.82 (4.0-5.2) X10^6/uL Hgb 13.9 (12.0-16.0) g/dL Hct 41.3 (36-46) % MCV 85.7 (80-100) fL MCH 28.8 (26-34) PG MCHC 33.6 (30-36) % RDW 13.6 (11.6-14.8) % Plt Count 345 (150-400) X10^3/uL Neut % (Auto) Not Reportable Lymph % (Auto) Not Reportable [place] % (Auto) Not Reportable Eos % (Auto) Not Reportable Baso % (Auto) Not Reportable Lymph # (Auto) Not Reportable [place] # (Auto) Not Reportable Baso # (Auto) Not Reportable Total Counted 100 Seg Neutrophils % 88.0 H (38-70) % Band Neutrophils % 4.0 (3-7) % Lymphocytes % (Manual) 5.0 L (25-45) % Monocytes % (Manual) 3.0 (2-11) % Neutrophils # (Manual) 62633 H (1745-7644) /uL Toxic Granulation Platelet Estimate Adequate on smear RBC Morphology Normal morphology PT (10.1-12.7) SECONDS INR (0.9-1.3) APTT 72 H D (26-36) SECONDS ABG pH (7.35-7.45) ABG pCO2 (35-45) mmHg ABG pO2 (80-100) mmHg ABG HCO3 (23-27) mmol/L ABG Total CO2 (23-27) mmol/L ABG O2 Saturation (95-100) % ABG Base Excess (-2-3) mmol/L FiO2 Sodium 138 (137-145) mmol/L Potassium 3.8 D (3.4-5.1) mmol/L Chloride 97 L (98-107) mmol/L Carbon Dioxide 32 (22-32) mmol/L BUN 20 H (7-17) mg/dL Creatinine 1.18 H (0.52-1.04) mg/dL Estimated GFR 57 L (>60) mL/min BUN/Creatinine Ratio 16.9 (6-22) Glucose 148 H (70-100) mg/dL Lactate (0.7-2.1) mmol/L Calcium 8.4 (8.4-10.2) mg/dL Magnesium (1.6-2.3) mg/dL Total Bilirubin 0.4 (0.2-1.3) mg/dL AST 153 H (14-36) IU/L ALT 90 H (<35) IU/L Alkaline Phosphatase 150 H (38-126) U/L Ammonia Total Creatine Kinase 8807 H CK-MB (CK-2) TNP CK-MB (CK-2) Rel Index TNP Troponin I 0.417 H* NT-Pro-B Natriuret Pep (<125) pg/mL Total Protein 8.0 (6.3-8.2) g/dL Albumin 4.1 (3.5-5.0) g/dL Globulin 3.9 (1.7-4.1) g/dL Albumin/Globulin Ratio 1.1 (1.0-2.8) Lipase 600 H D (23-300) U/L Procalcitonin (<0.5) ng/mL TSH Urine Color Urine Appearance Urine pH (4.5-8.0) Ur Specific [place] (1.000-1.035) Urine Protein (Negative) Urine Glucose (UA) (Negative) g/dL Urine Ketones (NEGATIVE) Urine Occult Blood (Negative) Urine Nitrate (Negative) Urine Bilirubin (NEGATIVE) Urine Urobilinogen (0.2) E.U./dL Ur Leukocyte Esterase (NEGATIVE) Urine RBC (0-5/HPF) Urine WBC (0-5/HPF) Ur Squamous Epith Cells (0-5/HPF) Ur Renal Epithelial Cell (0-1/HPF) Urine Bacteria (None) Ur Culture Indicated? CSF Tube Number CSF Volume CSF Appearance (Clear) CSF Color (Colorless) CSF WBC (0-5) MONO/uL CSF RBC RBC /uL CSF Mononuclear WBCs CSF Polynuclear WBCs CSF Glucose (40-70) mg/dL CSF Total Protein (12-60) mg/dL CSF C.neoform/gat PCR (Not Detect) CSF CMV DNA (PCR) (Not Detect) CSF Enterovirus (PCR) (Not Detect) CSF E. coli (PCR) (Not Detect) CSF H. influenzae (PCR) (Not Detect) CSF HSV I (PCR) (Not Detect) CSF HSV II (PCR) (Not Detect) CSF HHV 6 (PCR) (Not Detect) CSF L.monocytogenes PCR (Not Detect) CSF N. meningitidis PCR (Not Detect) CSF Parechovirus (PCR) (Not Detect) CSF S. agalactiae (PCR) (Not Detect) CSF S. pneumoniae (PCR) (Not Detect) CSF VZV (PCR) (Not Detecte) U Opiates 300ng/mL cut (Negative) Ur Oxycodone Screen (Negative) Urine Methadone Screen (Negative) Ur Barbiturates Screen (Negative) U Tricyclic Antidepress (Negative) Ur Phencyclidine Scrn (Negative) Ur Amphetamines Screen (Negative) U Methamphetamines Scrn (Negative) Ur MDMA Scrn (Ecstasy) (Negative) U Benzodiazepines Scrn (Negative) Urine Cocaine Screen (Negative) U Marijuana (THC) Screen (Negative) Ethyl Alcohol ( - 10) mg/dL Chlamy pneumoniae PCR (Not Detect) Adenovirus (PCR) (Not Detect) B. pertussis DNA (PCR) (Not Detecte) B.parapertussis DNA PCR (Not Detecte) Coronavirus OC43 (PCR) (Not Detect) Coronavirus HKU1 (PCR) (Not Detect) Coronavirus 229E (PCR) (Not Detect) SARS-CoV-2 (PCR) (Not Detecte) Coronavirus NL63 (PCR) (Not Detect) Human Metapneumovir PCR (Not Detect) Influenza Type A (PCR) (Not Detect) Influenza Type B (PCR) (Not Detect) M. pneumoniae (PCR) (Not Detect) Parainfluenza 1 (PCR) (Not Detect) Parainfluenza 2 (PCR) (Not Detect) Parainfluenza 3 (PCR) (Not Detect) Parainfluenza 4 (PCR) (Not Detect) RSV (PCR) (Not Detect) Entero/Rhino (PCR) (Not Detect) 08/31/22 08/31/22 08/31/22 Range/Units 10:45 10:45 10:45 WBC (4.5-11.0) X10^3/uL RBC (4.0-5.2) X10^6/uL Hgb (12.0-16.0) g/dL Hct (36-46) % MCV (80-100) fL MCH (26-34) PG MCHC (30-36) % RDW (11.6-14.8) % Plt Count (150-400) X10^3/uL Neut % (Auto) Lymph % (Auto) [place] % (Auto) Eos % (Auto) Baso % (Auto) Lymph # (Auto) [place] # (Auto) Baso # (Auto) Total Counted Seg Neutrophils % (38-70) % Band Neutrophils % (3-7) % Lymphocytes % (Manual) (25-45) % Monocytes % (Manual) (2-11) % Neutrophils # (Manual) (9312-5822) /uL Toxic Granulation Platelet Estimate RBC Morphology PT (10.1-12.7) SECONDS INR (0.9-1.3) APTT (26-36) SECONDS ABG pH (7.35-7.45) ABG pCO2 (35-45) mmHg ABG pO2 (80-100) mmHg ABG HCO3 (23-27) mmol/L ABG Total CO2 (23-27) mmol/L ABG O2 Saturation (95-100) % ABG Base Excess (-2-3) mmol/L FiO2 Sodium 138 (137-145) mmol/L Potassium 3.7 (3.4-5.1) mmol/L Chloride 102 (98-107) mmol/L Carbon Dioxide 29 (22-32) mmol/L BUN 18 H (7-17) mg/dL Creatinine 0.92 (0.52-1.04) mg/dL Estimated GFR > 60 (>60) mL/min BUN/Creatinine Ratio 19.6 (6-22) Glucose 102 H (70-100) mg/dL Lactate 1.5 (0.7-2.1) mmol/L Calcium 8.2 L (8.4-10.2) mg/dL Magnesium (1.6-2.3) mg/dL Total Bilirubin 0.5 (0.2-1.3) mg/dL AST 139 H (14-36) IU/L ALT 85 H (<35) IU/L Alkaline Phosphatase 129 H (38-126) U/L Ammonia Total Creatine Kinase 6211 H CK-MB (CK-2) TNP CK-MB (CK-2) Rel Index TNP Troponin I 0.354 H* NT-Pro-B Natriuret Pep (<125) pg/mL Total Protein 7.7 (6.3-8.2) g/dL Albumin 4.0 (3.5-5.0) g/dL Globulin 3.7 (1.7-4.1) g/dL Albumin/Globulin Ratio 1.1 (1.0-2.8) Lipase (23-300) U/L Procalcitonin 1.58 H (<0.5) ng/mL TSH Urine Color Urine Appearance Urine pH (4.5-8.0) Ur Specific [place] (1.000-1.035) Urine Protein (Negative) Urine Glucose (UA) (Negative) g/dL Urine Ketones (NEGATIVE) Urine Occult Blood (Negative) Urine Nitrate (Negative) Urine Bilirubin (NEGATIVE) Urine Urobilinogen (0.2) E.U./dL Ur Leukocyte Esterase (NEGATIVE) Urine RBC (0-5/HPF) Urine WBC (0-5/HPF) Ur Squamous Epith Cells (0-5/HPF) Ur Renal Epithelial Cell (0-1/HPF) Urine Bacteria (None) Ur Culture Indicated? CSF Tube Number CSF Volume CSF Appearance (Clear) CSF Color (Colorless) CSF WBC (0-5) MONO/uL CSF RBC RBC /uL CSF Mononuclear WBCs CSF Polynuclear WBCs CSF Glucose (40-70) mg/dL CSF Total Protein (12-60) mg/dL CSF C.neoform/gat PCR (Not Detect) CSF CMV DNA (PCR) (Not Detect) CSF Enterovirus (PCR) (Not Detect) CSF E. coli (PCR) (Not Detect) CSF H. influenzae (PCR) (Not Detect) CSF HSV I (PCR) (Not Detect) CSF HSV II (PCR) (Not Detect) CSF HHV 6 (PCR) (Not Detect) CSF L.monocytogenes PCR (Not Detect) CSF N. meningitidis PCR (Not Detect) CSF Parechovirus (PCR) (Not Detect) CSF S. agalactiae (PCR) (Not Detect) CSF S. pneumoniae (PCR) (Not Detect) CSF VZV (PCR) (Not Detecte) U Opiates 300ng/mL cut (Negative) Ur Oxycodone Screen (Negative) Urine Methadone Screen (Negative) Ur Barbiturates Screen (Negative) U Tricyclic Antidepress (Negative) Ur Phencyclidine Scrn (Negative) Ur Amphetamines Screen (Negative) U Methamphetamines Scrn (Negative) Ur MDMA Scrn (Ecstasy) (Negative) U Benzodiazepines Scrn (Negative) Urine Cocaine Screen (Negative) U Marijuana (THC) Screen (Negative) Ethyl Alcohol ( - 10) mg/dL Chlamy pneumoniae PCR (Not Detect) Adenovirus (PCR) (Not Detect) B. pertussis DNA (PCR) (Not Detecte) B.parapertussis DNA PCR (Not Detecte) Coronavirus OC43 (PCR) (Not Detect) Coronavirus HKU1 (PCR) (Not Detect) Coronavirus 229E (PCR) (Not Detect) SARS-CoV-2 (PCR) (Not Detecte) Coronavirus NL63 (PCR) (Not Detect) Human Metapneumovir PCR (Not Detect) Influenza Type A (PCR) (Not Detect) Influenza Type B (PCR) (Not Detect) M. pneumoniae (PCR) (Not Detect) Parainfluenza 1 (PCR) (Not Detect) Parainfluenza 2 (PCR) (Not Detect) Parainfluenza 3 (PCR) (Not Detect) Parainfluenza 4 (PCR) (Not Detect) RSV (PCR) (Not Detect) Entero/Rhino (PCR) (Not Detect) 08/31/22 Range/Units 12:30 WBC (4.5-11.0) X10^3/uL RBC (4.0-5.2) X10^6/uL Hgb (12.0-16.0) g/dL Hct (36-46) % MCV (80-100) fL MCH (26-34) PG MCHC (30-36) % RDW (11.6-14.8) % Plt Count (150-400) X10^3/uL Neut % (Auto) Lymph % (Auto) [place] % (Auto) Eos % (Auto) Baso % (Auto) Lymph # (Auto) [place] # (Auto) Baso # (Auto) Total Counted Seg Neutrophils % (38-70) % Band Neutrophils % (3-7) % Lymphocytes % (Manual) (25-45) % Monocytes % (Manual) (2-11) % Neutrophils # (Manual) (9540-5274) /uL Toxic Granulation Platelet Estimate RBC Morphology PT (10.1-12.7) SECONDS INR (0.9-1.3) APTT 51 H D (26-36) SECONDS ABG pH (7.35-7.45) ABG pCO2 (35-45) mmHg ABG pO2 (80-100) mmHg ABG HCO3 (23-27) mmol/L ABG Total CO2 (23-27) mmol/L ABG O2 Saturation (95-100) % ABG Base Excess (-2-3) mmol/L FiO2 Sodium (137-145) mmol/L Potassium (3.4-5.1) mmol/L Chloride (98-107) mmol/L Carbon Dioxide (22-32) mmol/L BUN (7-17) mg/dL Creatinine (0.52-1.04) mg/dL Estimated GFR (>60) mL/min BUN/Creatinine Ratio (6-22) Glucose (70-100) mg/dL Lactate (0.7-2.1) mmol/L Calcium (8.4-10.2) mg/dL Magnesium (1.6-2.3) mg/dL Total Bilirubin (0.2-1.3) mg/dL AST (14-36) IU/L ALT (<35) IU/L Alkaline Phosphatase (38-126) U/L Ammonia Total Creatine Kinase CK-MB (CK-2) CK-MB (CK-2) Rel Index Troponin I NT-Pro-B Natriuret Pep (<125) pg/mL Total Protein (6.3-8.2) g/dL Albumin (3.5-5.0) g/dL Globulin (1.7-4.1) g/dL Albumin/Globulin Ratio (1.0-2.8) Lipase (23-300) U/L Procalcitonin (<0.5) ng/mL TSH Urine Color Urine Appearance Urine pH (4.5-8.0) Ur Specific [place] (1.000-1.035) Urine Protein (Negative) Urine Glucose (UA) (Negative) g/dL Urine Ketones (NEGATIVE) Urine Occult Blood (Negative) Urine Nitrate (Negative) Urine Bilirubin (NEGATIVE) Urine Urobilinogen (0.2) E.U./dL Ur Leukocyte Esterase (NEGATIVE) Urine RBC (0-5/HPF) Urine WBC (0-5/HPF) Ur Squamous Epith Cells (0-5/HPF) Ur Renal Epithelial Cell (0-1/HPF) Urine Bacteria (None) Ur Culture Indicated? CSF Tube Number CSF Volume CSF Appearance (Clear) CSF Color (Colorless) CSF WBC (0-5) MONO/uL CSF RBC RBC /uL CSF Mononuclear WBCs CSF Polynuclear WBCs CSF Glucose (40-70) mg/dL CSF Total Protein (12-60) mg/dL CSF C.neoform/gat PCR (Not Detect) CSF CMV DNA (PCR) (Not Detect) CSF Enterovirus (PCR) (Not Detect) CSF E. coli (PCR) (Not Detect) CSF H. influenzae (PCR) (Not Detect) CSF HSV I (PCR) (Not Detect) CSF HSV II (PCR) (Not Detect) CSF HHV 6 (PCR) (Not Detect) CSF L.monocytogenes PCR (Not Detect) CSF N. meningitidis PCR (Not Detect) CSF Parechovirus (PCR) (Not Detect) CSF S. agalactiae (PCR) (Not Detect) CSF S. pneumoniae (PCR) (Not Detect) CSF VZV (PCR) (Not Detecte) U Opiates 300ng/mL cut (Negative) Ur Oxycodone Screen (Negative) Urine Methadone Screen (Negative) Ur Barbiturates Screen (Negative) U Tricyclic Antidepress (Negative) Ur Phencyclidine Scrn (Negative) Ur Amphetamines Screen (Negative) U Methamphetamines Scrn (Negative) Ur MDMA Scrn (Ecstasy) (Negative) U Benzodiazepines Scrn (Negative) Urine Cocaine Screen (Negative) U Marijuana (THC) Screen (Negative) Ethyl Alcohol ( - 10) mg/dL Chlamy pneumoniae PCR (Not Detect) Adenovirus (PCR) (Not Detect) B. pertussis DNA (PCR) (Not Detecte) B.parapertussis DNA PCR (Not Detecte) Coronavirus OC43 (PCR) (Not Detect) Coronavirus HKU1 (PCR) (Not Detect) Coronavirus 229E (PCR) (Not Detect) SARS-CoV-2 (PCR) (Not Detecte) Coronavirus NL63 (PCR) (Not Detect) Human Metapneumovir PCR (Not Detect) Influenza Type A (PCR) (Not Detect) Influenza Type B (PCR) (Not Detect) M. pneumoniae (PCR) (Not Detect) Parainfluenza 1 (PCR) (Not Detect) Parainfluenza 2 (PCR) (Not Detect) Parainfluenza 3 (PCR) (Not Detect) Parainfluenza 4 (PCR) (Not Detect) RSV (PCR) (Not Detect) Entero/Rhino (PCR) (Not Detect) Point of Care Testing Glucose POC 105 MDM Narrative Medical decision making narrative: Patient's presenting symptoms were somewhat confusing. Patient was having a headache and neck pain in back pain but also hearing loss. Initially unsure as to whether not there was a trauma also somewhat unsure as to what symptoms she presented with her new as she kept stating that she had a ?autonomic dysfunction? and also POTS and also fibromyalgia. Her friend at bedside states that these medical conditions sometimes cause her to ?pass out? patient denied any illicit drugs or other intoxicating substances. Upon arrival patient was hypoxic to the mid 80s. She was placed on oxygen. She was tachycardic. Was afebrile. Labs started to return which showed a significant leukocytosis. Rocephin was ordered. Blood cultures were obtained. Given the nature of her presenting symptoms to include tachycardia and leukocytosis and headache neck pain a lumbar puncture was performed without incident. After the lumbar puncture, antibiotic treatment for meningitis was started. When the patient was sat up in order to do the lumbar puncture was noted that she had a vesicular lesion on the posterior aspect of her cervical spine. Initially thought that this was zoster however it did cross midline. It very well could be a her panic infection. A viral culture was obtained. Because of this finding she was also started on acyclovir at lumbar puncture. The results eventually were not convincing for meningitis. Ativan seemed to tremendously help her symptoms and allow her to sleep overnight. Patient was also found to have a elevated troponin. Patient was started on heparin. She would a nonischemic EKG. Repeat troponins show a rise despite the heparin. Patient also had a significantly elevated BNP. CT scan of the chest did not show any signs of pulmonary embolism however it did show signs of pulmonary edema and also potential pneumonia. She was given Lasix and she did diurese. Remaining CT scans did not show any signs of acute intracranial pathology. Patient took continues to state that she is having problems hearing. Her she where can hear what you were saying as she does answer questions however you do have to speak loud. She states that she really hears is muffled voices. I did discuss the case with cardio and she had [facility] who stated that the elevated troponin was most likely related to her other symptoms. I then discussed the case with Dr. Sands hospitalist at [facility] who accepts the patient in transfer. Care turned over to day provider to continue to observe until bed available [0700] (Jorge) Patient received in sign out from [Jason]. I have reviewed the clinical course and performed an independent history and physical exam. <Josse Jorge, DO - Last Filed: 08/31/22 16:42> Critical Care Time Critical Care Time: Yes Total Critical Care Time: 60 Attestation: The high probability of a clinically significant, sudden or life threatening deterioration of the [CV/NV] system(s) required my full and direct attention, intervention and personal management. The aggregate critical care time was [60] minutes. This time is in addition to time spent performing reported procedures but includes the following: [x] Data Review and interpretation [x] Patient assessment and monitoring of vital signs [x] Documentation [x] Medication orders and management Discharge Plan Departure Patient Disposition: [facility] Clinical Impression: Bilateral pneumonia, Fibromyalgia, Acute non-ST elevation myocardial infarction (NSTEMI), Hearing loss, Sepsis Prescriptions: No Action clonazepam 1 mg tablet 1 mg PO TID Qty: 42 0RF Rx Instructions: Refill is to cover 2 weeks as patient is not able to contact [facility] duloxetine [Cymbalta] 60 mg capsule,delayed release(/EC) See Rx Instructions PO DAILY Qty: 90 3RF Rx Instructions: Take one daily after finishing the 30 mg tablet prescription methadone 10 mg tablet See Rx Instructions PO Q6H Qty: 112 0RF Rx Instructions: Take one four times daily for pain. Must last 28 day. release date 08/28/22 Referrals: Jong Reilly MD [Primary Care Provider] -
[2022-08-30 22:19] LABS: Hematocrit 42.6 % (36-46); Hemoglobin 14.2 g/dL (12.0-16.0); Mean Corpuscular HGB Conc 33.4 % (30-36); Mean Corpuscular Hemoglobin 28.8 PG (26-34); Mean Corpuscular Volume 86.3 fL (80-100); Platelet Count 368 X10^3/uL (150-400); Red Blood Cell Count 4.93 X10^6/uL (4.0-5.2); Red Cell Distribution Width 13.1 % (11.6-14.8)
[2022-08-30 22:23] LABS: Add Manual Diff / Slide Review YES; White Blood Cell Count 31.2 X10^3/uL (4.5-11.0)
[2022-08-30 22:32] LABS: Alanine Aminotransferase 96 IU/L (<35); Albumin 4.6 g/dL (3.5-5.0); Albumin Globulin Ratio 1.4 (1.0-2.8); Alkaline Phosphatase 156 U/L (38-126); Aspartate Aminotransferase 167 IU/L (14-36); BUN Creatinine Ratio 13.5 (6-22); Bilirubin Total 0.6 mg/dL (0.2-1.3); Blood Urea Nitrogen 21 mg/dL (7-17); Calcium 9.1 mg/dL (8.4-10.2); Carbon Dioxide 31 mmol/L (22-32); Chloride 96 mmol/L (98-107); Estimated Glomerular Filt Rate 41 mL/min (>60); Ethanol (ETOH) < 10 mg/dL; Globulin 3.4 g/dL (1.7-4.1); Glucose 110 mg/dL (70-100); HEMOLYSIS 34 (0-50); Lipase 1315 U/L (23-300); Magnesium 1.8 mg/dL (1.6-2.3); Potassium 5.2 mmol/L (3.4-5.1); Sodium 138 mmol/L (137-145)
[2022-08-30 22:35] LABS: Neutrophils Absolute Manual 30264 /uL (3000-5900); RBC Morphology Normal Morphology; Total Cells Counted 100; Toxic Granulation Present
[2022-08-30] MEDS: cefTRIAXone 1,000 MG in SODIUM CHLORIDE 0.9% 100 ML 200 MG IV (22:40)
[2022-08-30 22:45] LABS: NT-proBNP (BNP-Adult 18+) 9260 pg/mL (<125)
[2022-08-30 22:53] LABS: Procalcitonin 2.76 ng/mL (<0.5)
--- NOTE | 2022-08-30 23:21 | DI.CT.S_ITS ---
PROCEDURE: CT ANGIO CHEST PE PROTOCOL INDICATIONS: Chest pain, shortness of breath, tachycardia TECHNIQUE: After the administration of intravenous contrast, 2 mm thick sections acquired from the pulmonary apices to the posterior costophrenic angles. 3-dimensional maximum intensity projection (MIP) coronal and sagittal reformats were then acquired through the thorax. For radiation dose reduction, the following was used: automated exposure control, adjustment of mA and/or kV according to patient size. COMPARISON: None. FINDINGS: Image quality: Excellent. Pulmonary arteries: Pulmonary arteries are normal in size, and demonstrate no intraluminal filling defects to suggest central pulmonary embolism. Lower Neck: No lymphadenopathy by size criteria. Thyroid: Visualized thyroid demonstrates no discrete nodules. Axillae: No lymphadenopathy by size criteria. Chest Wall: Unremarkable. Bones: Visualized osseous structures demonstrate no suspicious lesions. Lungs and Airways: There are patchy bilateral areas of consolidation with a basilar predominance in the lower lobes. The findings are suggestive of multifocal pneumonia. Indistinct ground-glass opacities are demonstrated bilaterally which are nonspecific and may reflect pulmonary edema. The trachea and central airways are patent. Pleura: No pneumothorax or pleural effusions. Heart: Heart size is normal. No pericardial effusion. Thoracic Vessels: The thoracic aorta is normal in size. Mediastinum and Malou: No lymphadenopathy by size criteria. Esophagus: No wall thickening. No hiatal hernia. Abdomen: Visualized upper abdomen demonstrates hypoattenuation of the liver consistent with fatty infiltration. IMPRESSION: 1. No evidence of pulmonary embolism. 2. Bilateral patchy areas of consolidation with a lower lobe predominance. The findings are nonspecific but likely represent multifocal pneumonia. 3. Bilateral indistinct ground-glass opacities are also nonspecific and may reflect sequelae of pneumonia versus pulmonary edema or an inflammatory process. Dictated by: Xander Faria M.D. on 08/31/2022 at 0:28 Approved by: Xander Faria M.D. on 08/31/2022 at 0:39
--- NOTE | 2022-08-30 23:21 | DI.CT.S_ITS ---
P wall ROCEDURE: CT ANGIO HEAD AND NECK INDICATIONS: Headache, hearing loss, NSTEMI eval for dissection TECHNIQUE: After the administration of intravenous contrast, 1 mm thick sections acquired from the aortic arch through the Vi[place] of Mart[place]. Post-contrast 4.5 mm thick sections then re-acquired from the foramen magnum to the vertex. 3-dimensional rrbqxtu-ujhressnh-uwdkjmlioj (MIP) and/or volume rendering reformats were acquired of the central intracranial vasculature and neck separately. For radiation dose reduction, the following was used: automated exposure control, adjustment of mA and/or kV according to patient size. COMPARISON: [facility], CT, CT ANGIO CHEST PE PROTOCOL, 08/30/2022, 23:28. [facility], CT, CT HEAD/BRAIN WO CON, 08/30/2022, 20:41. FINDINGS: Image quality: Excellent. BRAIN: CSF spaces: Basal cisterns are patent. No extra-axial fluid collections. Ventricles are normal in size and shape. Brain: No intracranial hemorrhage, mass, or mass effect. Ferraro-white matter interface appears preserved. No abnormal intracranial enhancement. Skull and face: Calvarium and facial bones appear intact, without suspicious lesions. Orbits appear normal. Sinuses: Sinuses and mastoids are clear. HEAD CT ANGIOGRAPHY: Anterior circulation: Intracranial internal carotid arteries are normal in size and appear patent bilaterally. There is mild atherosclerotic calcification along the cavernous segments of the internal carotid arteries. The paired anterior cerebral arteries appear patent bilaterally. The anterior communicating artery also appears patent. The middle cerebral arteries appear patent bilaterally. No high-grade stenosis, occlusion, or filling defects. No cerebral aneurysms identified. Posterior circulation: Visualized portions of the vertebral arteries demonstrate normal caliber, and join to form a patent basilar artery. The posterior cerebral arteries appears patent bilaterally. No high-grade stenosis, occlusion, or filling defects. No cerebral aneurysms identified. NECK CT ANGIOGRAPHY: Carotid system: The great vessels demonstrate common origin of the right brachiocephalic and left common carotid arteries as they arise from the aortic arch. The origins of the common carotid arteries appear patent. The common carotid arteries demonstrate normal caliber and courses. The bifurcation regions are both widely patent. The internal carotid arteries demonstrate normal calibers and courses. Posterior circulation: The origins of the vertebral arteries both appear patent. The more superior extracranial portions of both vertebral arteries also demonstrate normal courses and calibers. They join to form a patent basilar artery. Soft tissues: Visualized thorax demonstrates patchy bilateral ground-glass opacities within the visualized lungs. Bones: No suspicious bony lesions. Visualized cervical spine demonstrates straightening of the cervical lordosis. There is multilevel degenerative disc disease and facet joint arthropathy. IMPRESSION: 1. No evidence of arterial dissection. 2. No high-grade stenosis or occlusion of the central intracranial arteries. 3. No high-grade stenosis or occlusion of the head and neck arteries. Any quantitative measurements of stenosis were performed using NASCET criteria. Dictated by: Xander Faria M.D. on 08/31/2022 at 1:17 Approved by: Xander Faria M.D. on 08/31/2022 at 1:21
[2022-08-30] MEDS: SODIUM CHLORIDE 0.9% 1,000 ML 1000 ML IV (23:24)
[2022-08-30] MEDS: FUROSEMIDE 40 MG/4 ML VIAL IV (23:24)
[2022-08-30 23:26] LABS: INR 1.1 (0.9-1.3); Prothrombin Time 13.1 SECONDS (10.1-12.7)
[2022-08-30 23:27] LABS: Glucose CSF 87 mg/dL (40-70); Total Protein CSF 49 mg/dL (12-60)
[2022-08-30 23:28] LABS: PTT Partial Thromboplastin Tim 34 SECONDS (26-36)
[2022-08-31] VITALS (37 sets, daily range): BP systolic 106–136; BP diastolic 64–83; PULSE 97–112; RESP 13–29; TEMP 37.2–38.1; O2SAT 88–100
[2022-08-31] MEDS: DEXTROSE 5% IV
[2022-08-31] MEDS: WATER IV
[2022-08-31] MEDS: ACYCLOVIR IV
[2022-08-31] MEDS: HEPARIN 5,000 UNIT/ML VIAL 5000 UNIT IV (00:01)
[2022-08-31] MEDS: HEPARIN DRIP 25,000 UNIT/500 ML IV.SOLN 20 UNIT IV (00:02)
[2022-08-31 00:04] LABS: Appearance CSF Clear (Clear); CSF Tube Number 2; CSF Tube Volume 1.5 mL; Color CSF Colorless (Colorless); White Blood Cell CSF 3 MONO/uL (0-5)
[2022-08-31 00:05] LABS: Red Blood Cell CSF 344 RBC /uL
[2022-08-31] MEDS: AMPICILLIN 2,000 MG in SODIUM CHLORIDE 0.9% 100 ML 200 MG IV (00:08)
[2022-08-31] MEDS: VANCOMYCIN 2,000 MG/400 ML PIGGYBACK 200 MG IV (00:41)
[2022-08-31 00:49] LABS: Cryptococcus neoformans/gattii Not Detected (Not Detect); Enterovirus Not Detected (Not Detect); Escherichia coli K1 Not Detected (Not Detect); Haemophilus influenzae Not Detected (Not Detect); Herpes simplex virus 1 Not Detected (Not Detect); Herpes simplex virus 2 Not Detected (Not Detect); Human herpesvirus 6 Not Detected (Not Detect); Neisseria meningitidis Not Detected (Not Detect); Streptococcus agalactiae Not Detected (Not Detect); Streptococcus pneumoniae Not Detected (Not Detect); Varicella Zoster Virus Not Detected (Not Detecte)
[2022-08-31 00:50] LABS: Human parechovirus Not Detected (Not Detect); Listeria monocytogenes Not Detected (Not Detect)
[2022-08-31 01:07] LABS: Creatine Kinase 7568 U/L (30-135)
[2022-08-31 01:09] LABS: Troponin I 0.325 ng/mL (0.01-0.034)
[2022-08-31] MEDS: LORazepam 2 MG/ML INJ 0.5 MG IV (02:48)
--- NOTE | 2022-08-31 03:51 | DI.MRI.S_ITS ---
PROCEDURE: MR HEAD/BRAIN WO CON INDICATIONS: hearing loss/headache TECHNIQUE: Noncontrast axial T1 spin echo, axial T2 fast spin echo, sagittal and axial FLAIR, coronal T2 fast spin echo, axial gradient echo, axial diffusion and ADC through the brain. COMPARISON: [facility], CT, CT ANGIO HEAD AND NECK, 08/30/2022, 23:28. [facility], CT, CT ANGIO CHEST PE PROTOCOL, 08/30/2022, 23:28. [facility], CT, CT HEAD/BRAIN WO CON, 08/30/2022, 20:41. FINDINGS: Image quality: Excellent. CSF Spaces: Basal cisterns are patent. No extra-axial fluid collections. Ventricles are normal in size and shape. Brain: No intracranial masses or hemorrhage. Ferraro/white matter interface is normal. Brainstem appears normal. Diffusion-weighted images demonstrate no acute ischemic insult. No chronic ischemic insults. Normal intravascular flow voids are present. Skull and face: Calvarium has normal marrow signal. Orbits appear normal. Sinuses: Sinuses and mastoids are clear. IMPRESSION: 1. No acute intracranial process. Dictated by: Siobhan Antunez M.D. on 08/31/2022 at 11:05 Approved by: Siobhan Antunez M.D. on 08/31/2022 at 11:06
--- NOTE | 2022-08-31 03:51 | DI.ECHO.S_ITS ---
[facility]---------+ [facility] +---------+ : : [address] : : : : [id number] : : : : Phone: [phone]---------+ Echocardiogram Report + + :Name: ROBBIE HUERTA Study Date: 08/31/2022 Height: 67 in : :[facility] ReadingLocation: Weight: 189 lb : : Gender: Female BSA: 2.0 m2 : :: 1975 Age: 47 yrs BP: 112/81 mmHg: :Reason For Study: NSTEMI : :Ordering Physician: DALE, : :REYES Performed By: Kaia Jeffery : :Referring: REYES HUNTER : + + Interpretation Summary Left ventricular ejection fraction is estimated to be 50 +/- 5%. There is sever hypokinesis involving the inferior/inferolateral wall from base to distal. Right ventricular systolic function is at the lower limits of normal. Pulmonary artery pressures cannot be estimated because of the lack of a measurable TR jet velocity. No significant valvular abnormality. Procedure: A two-dimensional transthoracic echocardiogram with color flow and Doppler was performed. The study quality was technically difficult. There is no prior echocardiogram noted for this patient. A contrast injection of Definity was performed to improve assessment of LV function. The patient was in sinus tachycardia with heart rates between 95-103 bpm during the exam. Left Ventricle: The left ventricle is normal in size. The estimated left ventricular end diastolic volume is 87 ml. There is normal left ventricular wall thickness. Left ventricular ejection fraction is estimated to be 50 +/- 5%. There is sever hypokinesis involving the inferior/inferolateral wall from base to distal. Diastolic parameters suggest a relaxation abnormality of the left ventricle, consistent with probable normal filling pressures. Right Ventricle: The right ventricle is not well visualized. Right ventricular systolic function is at the lower limits of normal. Atria: The left atrial size is normal. Right atrial size is normal. There is no Doppler evidence for an interatrial shunt. Mitral Valve: The mitral valve is normal in structure and function. There is mild mitral regurgitation. Aortic Valve: The aortic valve is trileaflet. The aortic valve opens well. There is no aortic valve stenosis. No aortic regurgitation is present. Tricuspid Valve: The tricuspid valve is not well visualized, but is grossly normal. No tricuspid regurgitation. Pulmonary artery pressures cannot be estimated because of the lack of a measurable TR jet velocity. Pulmonic Valve: The pulmonic valve is not well visualized. There is trace pulmonic regurgitation. Great Vessels: The aortic root is normal size. The dimensions of the ascending aorta are normal. The inferior vena cava was not visualized. Pericardium/ Pleura There is no pericardial effusion. There is no pleural effusion. MMode/2D Measurements & Calculations LVIDd: 4.7 cm LVOT diam: 2.0 cm LVIDs: 3.9 cm Ao root diam: 3.0 cm FS: 15.3 % asc Aorta Diam: 2.9 cm EPSS: 1.4 cm Ao Arch Diam (Prox Trans): 2.6 cm IVSd: 0.74 cm LVPWd: 0.89 cm LV luz. diameter/BSA (cm/m^2): 2.4 LV sys. diameter/BSA (cm/m^2): 2.0 LA A2 area: 11.4 cm2 RA long axis: 3.2 cm LA A4 area: 10.0 cm2 RA area: 7.5 cm2 LA length (vol): 3.7 cm RA vol: 14.9 ml LA vol: 26.4 ml RA : 7.5 ml/m2 LA vol index: 13.4 ml/m2 TAPSE: 1.6 cm Doppler Measurements & Calculations Ao V2 max: 90.5 cm/sec LVOT Max Preston: 62.9 cm/sec Ao V2 mean: 66.7 cm/sec LV V1 max P.6 mmHg Ao max P.3 mmHg LV V1 VTI: 10.7 cm Ao mean P.9 mmHg IVELISSE(I,D): 2.3 cm2 Ao V2 VTI: 15.2 cm IVELISSE(V,D): 2.3 cm2 sev ratio: 0.70 IVELISSE indexed to BSA (cm^2/m^2): 1.2 MV E max preston: 71.5 cm/sec PA V2 max: 73.9 cm/sec MV A max preston: 64.5 cm/sec PA V2 mean: 49.2 cm/sec MV E/A: 1.1 PA mean P.1 mmHg Med Peak E' Preston: 6.2 cm/sec PA pr(Accel): 40.5 mmHg E/E' med: 11.6 Lat Peak E' Preston: 8.8 cm/sec E/E' lat: 8.1 E/e' average: 9.9 MV dec time: 0.13 sec [facility] 35.2 ml Reading Physician:GOVIND
[2022-08-31 05:14] LABS: Fractionated Inspired Oxygen 30; HCO3 ABG 26 mmol/L (23-27); Oxygen Saturation ABG 94 % (95-100); PCO2 ABG 45.7 mmHg (35-45); PO2 ABG 73 mmHg (80-100); TCO2 ABG 28 mmol/L (23-27); pH ABG 7.37 (7.35-7.45)
[2022-08-31 06:26] LABS: PTT Partial Thromboplastin Tim 72 SECONDS (26-36)
[2022-08-31 06:29] LABS: Alanine Aminotransferase 90 IU/L (<35); Albumin 4.1 g/dL (3.5-5.0); Albumin Globulin Ratio 1.1 (1.0-2.8); Alkaline Phosphatase 150 U/L (38-126); Aspartate Aminotransferase 153 IU/L (14-36); BUN Creatinine Ratio 16.9 (6-22); Bilirubin Total 0.4 mg/dL (0.2-1.3); Blood Urea Nitrogen 20 mg/dL (7-17); Calcium 8.4 mg/dL (8.4-10.2); Carbon Dioxide 32 mmol/L (22-32); Chloride 97 mmol/L (98-107); Estimated Glomerular Filt Rate 57 mL/min (>60); Globulin 3.9 g/dL (1.7-4.1); Glucose 148 mg/dL (70-100); HEMOLYSIS < 15 (0-50); Lipase 600 U/L (23-300); Potassium 3.8 mmol/L (3.4-5.1); Sodium 138 mmol/L (137-145)
[2022-08-31 06:39] LABS: Creatine Kinase 8807 U/L (30-135)
[2022-08-31 06:43] LABS: Troponin I 0.417 ng/mL (0.01-0.034)
[2022-08-31] MEDS: METHADONE 5 MG TABLET 10 MG PO (07:13)
[2022-08-31 07:45] LABS: Hematocrit 41.3 % (36-46); Hemoglobin 13.9 g/dL (12.0-16.0); Mean Corpuscular HGB Conc 33.6 % (30-36); Mean Corpuscular Hemoglobin 28.8 PG (26-34); Mean Corpuscular Volume 85.7 fL (80-100); Platelet Count 345 X10^3/uL (150-400); Red Blood Cell Count 4.82 X10^6/uL (4.0-5.2); Red Cell Distribution Width 13.6 % (11.6-14.8); White Blood Cell Count 29.8 X10^3/uL (4.5-11.0)
[2022-08-31 07:50] LABS: Add Manual Diff / Slide Review YES
[2022-08-31] MEDS: AZITHROMYCIN 500 MG in DEXTROSE 5% IN WATER 250 ML 250 MG IV (07:58)
[2022-08-31 08:19] LABS: Neutrophils Absolute Manual 27416 /uL (3000-5900); Total Cells Counted 100
[2022-08-31 08:20] LABS: Platelet Estimate Adequate on smear; RBC Morphology Normal Morphology
[2022-08-31] MEDS: SODIUM CHLORIDE 0.9% 1,000 ML 75 ML IV (09:18)
--- NOTE | 2022-08-31 09:43 | PC.NURSE ---
MRI unable to accommodate IV medications, notified Dr. Patel and approved to stop continuous NS and Heparin for procedure.
[2022-08-31] MEDS: LORazepam 2 MG/ML INJ 1 MG IV (09:47)
[2022-08-31] MEDS: SODIUM CHLORIDE 0.9% 1,000 ML 1000 ML IV (10:47)
[2022-08-31 11:04] LABS: Alanine Aminotransferase 85 IU/L (<35); Albumin Globulin Ratio 1.1 (1.0-2.8); Alkaline Phosphatase 129 U/L (38-126); Aspartate Aminotransferase 139 IU/L (14-36); BUN Creatinine Ratio 19.6 (6-22); Bilirubin Total 0.5 mg/dL (0.2-1.3); Blood Urea Nitrogen 18 mg/dL (7-17); Calcium 8.2 mg/dL (8.4-10.2); Carbon Dioxide 29 mmol/L (22-32); Chloride 102 mmol/L (98-107); Estimated Glomerular Filt Rate > 60 mL/min (>60); Globulin 3.7 g/dL (1.7-4.1); Glucose 102 mg/dL (70-100); Lactate (Lactic Acid) 1.5 mmol/L (0.7-2.1); Potassium 3.7 mmol/L (3.4-5.1); Sodium 138 mmol/L (137-145); Total Protein 7.7 g/dL (6.3-8.2)
[2022-08-31 11:10] LABS: HEMOLYSIS 60 (0-50)
[2022-08-31 11:19] LABS: Troponin I 0.354 ng/mL (0.01-0.034)
[2022-08-31 11:20] LABS: Procalcitonin 1.58 ng/mL (<0.5)
[2022-08-31 11:31] LABS: Creatine Kinase 6211 U/L (30-135)
[2022-08-31 12:50] LABS: PTT Partial Thromboplastin Tim 51 SECONDS (26-36)
[2022-08-31] MEDS: SODIUM BICARB 8.4% VIAL 150 MEQ in DEXTROSE 5% WATER 1,000 ML 200 MEQ IV (14:29)
--- NOTE | 2022-08-31 17:32 | PC.NURSE ---
Report given to MARI MERRITT and called to Alea MERRITT #[phone]
== END 2022-08-31 17:42 | disposition short-term general hospital (02) ==
PROVIDERS: Emergency Medicine; Emergency Provider Emergency Medicine; Family Provider Family Medicine; PCP Family Medicine
DX: J18.9 Pneumonia, unspecified organism (principal); M79.7 Fibromyalgia; I21.4 Non-ST elevation (NSTEMI) myocardial infarction; A41.9 Sepsis, unspecified organism; R51.9 Headache, unspecified; H91.90 Unspecified hearing loss, unspecified ear; R00.0 Tachycardia, unspecified; Z20.822 Contact with and (suspected) exposure to COVID-19
CPT/HCPCS: 36415; 36600; 62270; 70450; 70496; 70498; 70551; 71045; 71275; 80053; 80305; 80320; 81001; 82140; 82550; 82553; 82805; 82945; 82962; 83605; 83690; 83735; 83880; 84145; 84157; 84443; 84484; 85007; 85025; 85610; 85730; 87040; 87070; 87086; 87205; 87633; 87798; 89051; 93005; 96365; 96366; 96367; 96368; 96375; 96376; 99285; 99291; C8929; J0290; J0696; J1644; J1940; J2060; Q9957; Q9967

== ENCOUNTER → 2023-12-11 11:35 | Outpatient (CLI) | payer BC, SELFPAY ==
[2023-12-11 19:26] LABS: INR 0.9 (0.9-1.3); Prothrombin Time 10.6 SECONDS (9.4-12.5)
[2023-12-11 19:37] LABS: Add Manual Diff / Slide Review NO; Basophils Absolute Auto 100 /uL (0-100); Basophils Percent Auto 1.3 % (0-2); Eosinophils Absolute Auto 200 /uL (0-450); Eosinophils Percent Auto 2.5 % (2-4); Hematocrit 39.9 % (36-46); Lymphocytes Absolute Auto 2500 /uL (1100-4500); Lymphocytes Percent Auto 30.3 % (25-40); Mean Corpuscular HGB Conc 32.6 % (30-36); Mean Corpuscular Hemoglobin 28.5 PG (26-34); Mean Corpuscular Volume 87.3 fL (80-100); Monocytes Absolute Auto 400 /uL (0-900); Monocytes Percent Auto 5.1 % (3-14); Neutrophils Absolute Auto 5000 /uL (1500-7000); Neutrophils Percent Auto 60.8 % (50-75); Platelet Count 308 X10^3/uL (150-400); Red Blood Cell Count 4.57 X10^6/uL (4.0-5.2); Red Cell Distribution Width 14.2 % (11.6-14.8); White Blood Cell Count 8.3 X10^3/uL (4.5-11.0)
[2023-12-11 19:51] LABS: BUN Creatinine Ratio 26.8 (6-22); Blood Urea Nitrogen 15 mg/dL (7-17); Calcium 9.4 mg/dL (8.4-10.2); Carbon Dioxide 28 mmol/L (22-32); Chloride 102 mmol/L (98-107); Estimated Glomerular Filt Rate > 60 mL/min (>60); Glucose 108 mg/dL (70-100); HEMOLYSIS 19 (0-50); Potassium 4.6 mmol/L (3.4-5.1); Sodium 136 mmol/L (137-145)
== END ==
PROVIDERS: Internal Medicine Cardiovascular Disease; Family Provider Family Medicine; PCP Family Medicine
DX: I21.4 Non-ST elevation (NSTEMI) myocardial infarction (principal)
CPT/HCPCS: 80048; 85025; 85610